=== PATIENT | female | born 1975 | race Caucasian/White ===

== ENCOUNTER → 2020-11-21 | Outpatient (CLI) | payer BC ==
--- NOTE | 2020-11-22 13:46 | MM ---
Reason for exam: screening (asymptomatic). Last mammogram was performed 6 years and 6 months ago. History: Family history of breast cancer in mother at age 42. Physical Findings: A clinical breast exam by your physician is recommended on an annual basis and results should be correlated with mammographic findings. MG 3D Screening Mammo W/Cad Bilateral CC and MLO view(s) were taken. Prior study comparison: May 19, 2014, bilateral MG diagnostic mammo w CAD DAVY. There are scattered fibroglandular densities. No significant changes when compared with prior studies. ASSESSMENT: Benign, BI-RAD 2 RECOMMENDATION: Routine screening mammogram of both breasts in 1 year.
== END | disposition home or self-care (01) ==
LOC: RADMAMWWP 16:26
PROVIDERS: ATTEND Family Medicine
DX: Z12.31 Encounter for screening mammogram for malignant neoplasm of breast (principal); Z80.3 Family history of malignant neoplasm of breast
CPT/HCPCS: 77063; 77067

== ENCOUNTER 2021-01-07 08:36 | Inpatient (IN) | payer BC ==
[2021-01-07] MEDS ORDERED: SODIUM CHLORIDE 0.9% 1,000 ML IV STA (08:53)
[2021-01-07] MEDS ORDERED: ONDANSETRON 4 MG/2 ML VIAL IVP STA (08:53)
[2021-01-07] MEDS ORDERED: MORPHINE SULFATE 4 MG/ML SYRINGE IV STA (08:53)
[2021-01-07 09:23] LABS: Basophils # (A) 0.1 k/uL (0-0.2); Basophils % (A) 0 %; Eosinophils # (A) 0.2 k/uL (0-0.7); Eosinophils % (A) 1 %; HCT 42.3 % (34.0-46.0); HGB 14.8 gm/dL (11.4-16.0); Lymphocytes # (A) 1.1 k/uL (1.0-4.8); Lymphocytes % (A) 7 %; MCHC 34.9 g/dL (31.0-37.0); MCV 91.7 fL (80.0-100.0); Mean Platelet Volume 6.8; Monocytes # (A) 0.6 k/uL (0-1.0); Monocytes % (A) 4 %; Neutrophils # (A) 14.2 k/uL (1.3-7.7); Neutrophils % (A) 87 %; Platelet Count 243 k/uL (150-450); RBC 4.62 m/uL (3.80-5.40); RDW 11.6 % (11.5-15.5); WBC 16.2 k/uL (3.8-10.6)
[2021-01-07 09:32] LABS: ALT 9 U/L (4-34); AST 16 U/L (14-36); African American GFR (CKD) >90 (>60 ml/min/1.73 sqM); Albumin 4.2 g/dL (3.5-5.0); Alkaline Phosphatase 65 U/L (38-126); Amylase 54 U/L (30-110); Anion Gap 8 mmol/L; Blood Urea Nitrogen 13 mg/dL (7-17); Calcium 10.1 mg/dL (8.4-10.2); Carbon Dioxide 28 mmol/L (22-30); Chloride 104 mmol/L (98-107); Glucose 109 mg/dL (74-99); Lipase 120 U/L (23-300); Non-African American GFR(CKD) >90 (>60 ml/min/1.73 sqM); Potassium 4.3 mmol/L (3.5-5.1); Sodium 140 mmol/L (137-145); Total Bilirubin 1.3 mg/dL (0.2-1.3); Total Protein 7.1 g/dL (6.3-8.2)
[2021-01-07 09:44] LABS: INR 0.8 (<1.2); Prothrombin Time 9.3 sec (9.0-12.0)
--- NOTE | 2021-01-07 09:49 | CT ---
EXAMINATION TYPE: CT abdomen pelvis w con DATE OF EXAM: 01/07/2021 COMPARISON: 05/15/2015 HISTORY: 45-year-old female RLQ pain, constipation TECHNIQUE: Contiguous axial scanning of the abdomen and pelvis following administration of 100 ml Iso lora 300 IV contrast. Delayed images through the kidneys and coronal/sagittal reconstructions perform ed. CT DLP: 907 mGycm Automated exposure control for dose reduction was used. FINDINGS: Heart normal size without pericardial effusion. Lung bases clear without pleural effusion. Liver borderline in size and 17.9 cm. No focal liver lesion. Bile duct mildly dilated at 7 mm, fountain l image 34, acceptable given postcholecystectomy status. Portal venous system is patent. 2.0 x 1.2 cm low-density nodule of the left adrenal gland. Mild diffuse thickening of the right adren al gland without discrete nodularity. Incidental tiny 5 mm cortical hypodensity posterior lower pole left kidney probable small cyst. Spleen enlarged at 14.3 cm measured on coronal series. Pancreas within normal limits. No dilated small bowel, free fluid, or free air. Normal appendix. There is extensive heterogeneous tissue, fluid, and fat stranding in the right adnexa likely centered over the enlarged right ovary with areas of vascular enhancement and small foci of extraluminal air. A 1.5 cm cystic structure is present here as well. Left-sided colonic diverticulosis, extensive in the sigmoid colon. There is moderate inflammatory wal l thickening of the distal sigmoid colon with moderate to severe fat stranding extending to the right adnexa. Bladder partially distended. Left-sided pelvic phlebolith. Uterus anteverted. Heterogeneous enhancement of the uterus may be physiologic or could also reflect u nderlying fibrotic change or adenomyosis. Left ovary is visualized with a probable 1.5 cm corpus lute um IMPRESSION: 1. EXAM POSITIVE FOR ACUTE DIVERTICULITIS CENTERED ALONG THE DISTAL SIGMOID COLON. EXTENSIVE SURROUND ING INFLAMMATION EXTENDS INTO THE RIGHT ADNEXA WHERE A COUPLE SMALL FOCI OF EXTRALUMINAL AIR ARE PRES ENT COMPATIBLE WITH A TINY LOCALIZED PERFORATION AND ADJACENT INFLAMMATION OF THE RIGHT OVARY. A 1.5 CM CYSTIC STRUCTURE HERE PROBABLY REPRESENTS AN OVARIAN CYST RATHER THAN EARLY SMALL ABSCESS. FOLLOW- UP RECOMMENDED IF NO IMPROVEMENT WITH CONSERVATIVE MANAGEMENT. 2. INCIDENTAL 2 CM BENIGN LIPID RICH LEFT ADRENAL ADENOMA. MILD SPLENOMEGALY AT 14.3 CM. 3. POSSIBLE UNDERLYING SMALL FIBROID CHANGES THROUGHOUT THE UTERUS OR ADENOMYOSIS.
[2021-01-07 10:03] LABS: Partial Thromboplastin Time 21.5 sec (22.0-30.0)
[2021-01-07] MEDS ORDERED: NALOXONE 0.4 MG/ML 1 ML VIAL IV PRN (10:24)
[2021-01-07] MEDS ORDERED: ONDANSETRON 4 MG/2 ML VIAL IVP PRN (10:24)
[2021-01-07] MEDS ORDERED: PIPERACILLIN-TAZOBACTAM 3.375 GM in SODIUM CHLORIDE 0.9% 100 ML IVPB STA (10:26)
--- NOTE | 2021-01-07 10:31 | ED ---
Abdominal Pain HPI - General Chief Complaint: Abdominal Pain Stated Complaint: Abd/Back Pain Time Seen by Provider: 01/07/21 08:48 Source: patient Mode of arrival: ambulatory Limitations: no limitations - History of Present Illness Initial Comments: Patient is a 45-year-old female presenting to the emergency Department with complaints of right lower quadrant abdominal pain for the last 4 days. Patient states she has not had a bowel movement since Thursday, 5 days ago. About 4 days ago started noticing pain in her lower abdominal region, over the past couple days it has migrated to more the right lower quadrant, she states is very tender to the touch. She is having lots of nausea, no vomiting. She tried a stool softener, was able to pass gas over the last couple days but today the pain increases he came in for evaluation. She does have history cholecystectomy, ureter abrasion. She has history of ovarian cyst. She denies any fevers or chills, no chest pain or shortness of breath, no dysuria. She has no further complaints at this time. - Related Data Home Medications Medication Instructions Recorded Confirmed ALPRAZolam [Xanax] 0.5 mg PO DAILY PRN 01/07/21 01/07/21 Magnesium Hydroxide [Milk of 2,400 mg PO ONCE PRN 01/07/21 01/07/21 Magnesia] SUMAtriptan succinate [Imitrex] 50 mg PO DAILY PRN 01/07/21 01/07/21 Allergies Allergy/AdvReac Type Severity Reaction Status Date / Time No Known Allergies Allergy Verified 01/07/21 10:06 Review of Systems ROS Statement: Those systems with pertinent positive or pertinent negative responses have been documented in the HPI. ROS Other: All systems not noted in ROS Statement are negative. Past Medical History Past Medical History: No Reported History History of Any Multi-Drug Resistant Organisms: None Reported Past Surgical History: Cholecystectomy, Uterine Ablation Past Psychological History: Anxiety Smoking Status: Current every day smoker Past Alcohol Use History: None Reported Past Drug Use History: None Reported General Exam - General Exam Comments Initial Comments: GENERAL: Patient is well-developed and well-nourished. Patient is nontoxic and in moderate distress. HEAD: Atraumatic, normocephalic. EYES: Pupils equal round and reactive to light, extraocular movements intact, sclera anicteric, conjunctiva are normal. Eyelids were unremarkable. ENT: TMs normal, nares patent, oropharynx clear without exudates. Moist mucous membranes. NECK: Normal range of motion, supple without lymphadenopathy or JVD. LUNGS: Unlabored respirations. Breath sounds clear to auscultation bilaterally and equal. No wheezes rales or rhonchi. HEART: Regular rate and rhythm without murmurs, rubs or gallops. ABDOMEN: Patient is extremely tender to the touch of the entire right lower quadrant to mid abdomen region, she has guarding a lot, hypoactive bowel sounds. No masses appreciated. : Deferred MUSCULOSKELETAL: Normal extremities with adequate strength and normal range of motion, no pitting or edema. No clubbing or cyanosis. NEUROLOGICAL: Patient is alert and oriented x 3. Motor and sensory are also intact. Cranial nerves II through XII grossly intact. Symmetrical smile. Normal speech, normal gait. PSYCH: Normal mood, normal affect. SKIN: Warm, Dry, normal turgor, no rashes or lesions noted. Limitations: no limitations Course Vital Signs 01/07/21 01/07/21 08:38 10:53 Temperature 97.9 F Pulse Rate 102 H 81 Respiratory 18 16 Rate Blood Pressure 135/76 123/71 O2 Sat by Pulse 99 99 Oximetry Medical Decision Making - Medical Decision Making Patient is a 45-year-old female here for right lower quadrant abdominal pain and constipation over the past 4 days, positive nausea no vomiting or diarrhea. Her vitals were stable upon arrival, no fevers. Patient's labs today show a white count of 16.2, lactic acid is normal, lipase is normal. CT of the abdomen shows positive acute diverticulitis along the distal sigmoid colon with extensive surrounding inflammation and extends towards the right adnexa where there is a small foci of extraluminal air compatible with a tiny perforation and adjacent inflammation of the right ovary. Patient was given some fluids, Zofran and pain medication which she initially refused but now has accepted. I discussed these findings with Dr. Ramon who agrees to consult, we will order an ultrasound of the pelvis for further exam of the right ovary, this is pending. Patient will be started on antibiotics. Patient accepted by Dr. Wu. Case discussed with Dr. Ware. - Lab Data Result diagrams: 01/07/21 09:03 01/07/21 09:03 Lab Results 01/07/21 01/07/21 01/07/21 Range/Units 09:03 09:03 09:03 WBC 16.2 H (3.8-10.6) k/uL RBC 4.62 (3.80-5.40) m/uL Hgb 14.8 (11.4-16.0) gm/dL Hct 42.3 (34.0-46.0) % MCV 91.7 (80.0-100.0) fL MCH 32.0 (25.0-35.0) pg MCHC 34.9 (31.0-37.0) g/dL RDW 11.6 (11.5-15.5) % Plt Count 243 (150-450) k/uL MPV 6.8 Neutrophils % 87 % Lymphocytes % 7 % Monocytes % 4 % Eosinophils % 1 % Basophils % 0 % Neutrophils # 14.2 H (1.3-7.7) k/uL Lymphocytes # 1.1 (1.0-4.8) k/uL Monocytes # 0.6 (0-1.0) k/uL Eosinophils # 0.2 (0-0.7) k/uL Basophils # 0.1 (0-0.2) k/uL PT 9.3 (9.0-12.0) sec INR 0.8 (<1.2) APTT 21.5 L (22.0-30.0) sec Sodium 140 (137-145) mmol/L Potassium 4.3 (3.5-5.1) mmol/L Chloride 104 (98-107) mmol/L Carbon Dioxide 28 (22-30) mmol/L Anion Gap 8 mmol/L BUN 13 (7-17) mg/dL Creatinine 0.73 (0.52-1.04) mg/dL Est GFR (CKD-EPI)AfAm >90 (>60 ml/min/1.73 sqM) Est GFR (CKD-EPI)NonAf >90 (>60 ml/min/1.73 sqM) Glucose 109 H (74-99) mg/dL Plasma Lactic Acid Robbin (0.7-2.0) mmol/L Calcium 10.1 (8.4-10.2) mg/dL Total Bilirubin 1.3 (0.2-1.3) mg/dL AST 16 (14-36) U/L ALT 9 (4-34) U/L Alkaline Phosphatase 65 (38-126) U/L Total Protein 7.1 (6.3-8.2) g/dL Albumin 4.2 (3.5-5.0) g/dL Amylase 54 (30-110) U/L Lipase 120 (23-300) U/L Urine HCG, Qual (Not Detectd) Coronavirus (PCR) (Not Detectd) 01/07/21 01/07/21 01/07/21 Range/Units 09:03 09:03 10:44 WBC (3.8-10.6) k/uL RBC (3.80-5.40) m/uL Hgb (11.4-16.0) gm/dL Hct (34.0-46.0) % MCV (80.0-100.0) fL MCH (25.0-35.0) pg MCHC (31.0-37.0) g/dL RDW (11.5-15.5) % Plt Count (150-450) k/uL MPV Neutrophils % % Lymphocytes % % Monocytes % % Eosinophils % % Basophils % % Neutrophils # (1.3-7.7) k/uL Lymphocytes # (1.0-4.8) k/uL Monocytes # (0-1.0) k/uL Eosinophils # (0-0.7) k/uL Basophils # (0-0.2) k/uL PT (9.0-12.0) sec INR (<1.2) APTT (22.0-30.0) sec Sodium (137-145) mmol/L Potassium (3.5-5.1) mmol/L Chloride (98-107) mmol/L Carbon Dioxide (22-30) mmol/L Anion Gap mmol/L BUN (7-17) mg/dL Creatinine (0.52-1.04) mg/dL Est GFR (CKD-EPI)AfAm (>60 ml/min/1.73 sqM) Est GFR (CKD-EPI)NonAf (>60 ml/min/1.73 sqM) Glucose (74-99) mg/dL Plasma Lactic Acid Robbin 0.6 L (0.7-2.0) mmol/L Calcium (8.4-10.2) mg/dL Total Bilirubin (0.2-1.3) mg/dL AST (14-36) U/L ALT (4-34) U/L Alkaline Phosphatase (38-126) U/L Total Protein (6.3-8.2) g/dL Albumin (3.5-5.0) g/dL Amylase (30-110) U/L Lipase (23-300) U/L Urine HCG, Qual Not Detected (Not Detectd) Coronavirus (PCR) Not Detected (Not Detectd) Disposition Clinical Impression: Abdominal pain, Diverticulitis of colon with perforation Disposition: ADMITTED IP TO THIS HOSP Condition: Stable Is patient prescribed a controlled substance at d/c from ED?: No Referrals: Livan Dyer III, MD [Primary Care Provider] - 1-2 days Decision Date: 01/07/21 Decision Time: 10:31
[2021-01-07] MEDS: MORPHINE SULFATE 4 MG/ML SYRINGE IV PRN ×2 (10:55→15:21)
[2021-01-07] MEDS: SODIUM CHLORIDE 0.9% 1,000 ML IV SCH ×3 (10:56→23:34)
--- NOTE | 2021-01-07 11:58 | US ---
EXAMINATION TYPE: US transvaginal DATE OF EXAM: 01/07/2021 COMPARISON: CT CLINICAL HISTORY: RLQ pain, ovarian cyst, possible abscess. Enlarged right ovary per CT; patient c/o RLQ pain x 5 days; constipation; . TECHNIQUE: Transvaginal (TV). Transvaginal sonographic images were medically necessary as patient stated just emptied bladder. Date of LMP: 3 weeks ago EXAM MEASUREMENTS: Uterus: 9.2 x 6.1 x 4.9 cm Endometrial Stripe: not distinguishable. There is solid oval mass within measuring 2.3 cm x 1.2 cm x 1.1 cm. Right Ovary: 7.4 x 3.7 x 5.0 cm Left Ovary: 2.3 x 2.2 x 2.9 cm 1. Uterus: anteflexed as fundus tips posterior; couple of Nabothian Cysts seen in cervix with larges t cyst = 0.7 x 0.7 x 0.5cm; 2. Endometrium: hyperechoic oval mass = 1.7 x 2.3 x 1.2cm in myometrial/endometrial borders. Thus en dometrium is not discerned. 3. Right Ovary: Grossly 7.4 cm enlarged, complex ovary with exophytic cyst = 1.6 x 1.3 x 1.2cm 4. Left Ovary: small follicles seen Spectral, color and waveform doppler imaging shows good arterial and venous flow within the ovaries ; there is no evidence for ovarian torsion. 5. Bilateral Adnexa: wnl 6. Posterior cul-de-sac: wnl IMPRESSION: 1. There is an endometrial/myometrial mass measuring 2.3 cm. The endometrial stripe is not distinguis hable. Gynecologic evaluation is recommended. In addition, an MRI pelvis could be obtained with IV co ntrast. 2. Grossly enlarged right ovary measuring 7.4 cm. Underlying mass is not excluded. Gynecologic evalua tion is recommended. Again MRI of the pelvis may be helpful.
[2021-01-07] MEDS: KETOROLAC 15 MG/ML 1 ML VIAL IVP PRN ×2 (13:55→23:37)
--- NOTE | 2021-01-07 14:36 | P.GSCN ---
History of Present Illness Consult date: 01/07/21 History of present illness: CHIEF COMPLAINT: Pelvic pain HISTORY OF PRESENT ILLNESS: This is a 45-year-old female with a known past medical history of nicotine dependence, migraines and anxiety. She has a surgical history of cholecystectomy and uterine ablation. She presents to the hospital with complaints of lower pelvic pain that radiates to the back on the right side. She reports symptoms started over the weekend about 3 days ago. She has been nauseated. She denies any vomiting or fevers. Denies any change in bowel habits. She denies any vaginal discharge. She denies any irregular vaginal bleeding. She had a computed tomography scan of the abdomen and pelvis with contrast showing acute diverticulitis centered along the distal sigmoid colon. Extensive surrounding inflammation extends into the right adnexa where couple small foci of extraluminal air are present compatible with a tiny localized perforation and adjacent inflammation of the right ovary. A 1.5 cm cystic structure probably presented ovarian cyst rather than an early small abscess. Patient had transvaginal ultrasound completed showing an endometrial/myometrial mass measuring 2.3 cm. The endometrial stripe is not distinguishable. Gynecological evaluation recommended. Grossly enlarged right ovary measuring 7.4 cm underlying mass is not excluded. Patient denies any family history of ovarian cancer. PAST MEDICAL HISTORY: See list. PAST SURGICAL HISTORY: See list. MEDICATIONS: See list. ALLERGIES: See list. SOCIAL HISTORY: No illicit drug use. REVIEW OF SYSTEMS: CONSTITUTIONAL: Denies fever or chills. HEENT: Denies blurred vision, vision changes, or eye pain. Denies hemoptysis ENDOCRINE: Denies heat or cold intolerance. CARDIOVASCULAR: Denies chest pain or pressure. RESPIRATORY: No shortness of breath. GASTROINTESTINAL: Please refer to HPI NEURO: Denies history of seizures. PSYCH: No depression or suicidal ideation HEMATOLOGIC: Denies bleeding disorders. LYMPHATIC: The patient denies any lumps and bumps around the neck. GENITOURINARY: Denies any blood in urine or increased urinary frequency. MUSCULOSKELETAL: Denies myalgias. Denies joint swelling. Denies decreased range of motion beyond patients baseline. SKIN: Denies pruitis. Denies rash. PHYSICAL EXAM: VITAL SIGNS: Reviewed GENERAL: Well-developed in no acute distress. HEENT: No sclera icterus. Extraocular movements grossly intact. Moist buccal mucosa. Head is atraumatic, normocephalic. Hears conversational speech. No nasal drainage. NECK: Supple without lymphadenopathy. CHEST: Non-labored respirations and equal bilateral excursions. CARDIOVASCULAR: Regular rate with regular rhythm. Palpable 2+ radial pulses. ABDOMEN: Soft. Nondistended. Tenderness with palpation of the pelvic suprapubic area and right side of the abdomen MUSCULOSKELETAL: No clubbing or cyanosis. NEUROLOGIC: No focal or lateralizing signs. Cranial nerves II through XII grossly intact. PSYCH: Appropriate affect. Alert and oriented to person, place and time. SKIN: Well perfused. Good skin turgor. LABORATORY DATA: IMAGING: computed tomography scan of the abdomen and pelvis with contrast showing acute diverticulitis centered along the distal sigmoid colon. Extensive surrounding inflammation extends into the right adnexa where couple small foci of extraluminal air are present compatible with a tiny localized perforation and adjacent inflammation of the right ovary. A 1.5 cm cystic structure probably presented ovarian cyst rather than an early small abscess. Transvaginal ultrasound completed showing an endometrial/myometrial mass measuring 2.3 cm. The endometrial stripe is not distinguishable. Gynecological evaluation recommended. Grossly enlarged right ovary measuring 7.4 cm underlying mass is not excluded. ASSESSMENT: 1. Acute diverticulitis of the distal sigmoid colon 2. Enlarged right ovary measuring 7.4 cm, underlying mass not excluded on transvaginal ultrasound. Computed tomography scan noted enlarged right ovary with areas of vascular enhancement and small foci of extraluminal air 3. Endometrial/myometrial mass measuring 2.3 cm on transvaginal ultrasound 4. History of cholecystectomy 5. History of uterine ablation 6. Nicotine dependence PLAN: -Recommend gynecological consult for the enlarged right ovary and endometrial mass -Continue antibiotics for her acute diverticulitis -Keep patient nothing by mouth except for ice chips and popsicles -Increase IV fluids to 125 mL an hour -Continue pain medication as needed Thank you for this consultation Physician Advertising Production Manager note has been reviewed by physician. Signing provider agrees with the documented findings, assessment, and plan of care. Past Medical History Past Medical History: No Reported History History of Any Multi-Drug Resistant Organisms: None Reported Past Surgical History: Cholecystectomy, Uterine Ablation Past Psychological History: Anxiety Smoking Status: Current every day smoker Past Alcohol Use History: None Reported Past Drug Use History: None Reported - Past Family History Mother Family Medical History: Cancer Additional Family Medical History / Comment(s): Breast cancer Father Family Medical History: Diabetes Mellitus, Hyperlipidemia, Hypertension Additional Family Medical History / Comment(s): AAA Medications and Allergies Home Medications Medication Instructions Recorded Confirmed Type ALPRAZolam [Xanax] 0.5 mg PO DAILY PRN 01/07/21 01/07/21 History Magnesium Hydroxide [Milk of 2,400 mg PO ONCE PRN 01/07/21 01/07/21 History Magnesia] SUMAtriptan succinate [Imitrex] 50 mg PO DAILY PRN 01/07/21 01/07/21 History Allergies Allergy/AdvReac Type Severity Reaction Status Date / Time No Known Allergies Allergy Verified 01/07/21 10:06 Surgical - Exam Vital Signs Temp Pulse Resp BP Pulse Ox 97.9 F 102 H 18 135/76 99 01/07/21 08:38 01/07/21 08:38 01/07/21 08:38 01/07/21 08:38 01/07/21 08:38 Results - Labs 01/07/21 09:03 01/07/21 09:03 Abnormal Lab Results - Last 24 Hours (Table) 01/07/21 01/07/21 01/07/21 Range/Units 09:03 09:03 09:03 WBC 16.2 H (3.8-10.6) k/uL Neutrophils # 14.2 H (1.3-7.7) k/uL APTT 21.5 L (22.0-30.0) sec Glucose 109 H (74-99) mg/dL Plasma Lactic Acid Robbin (0.7-2.0) mmol/L 01/07/21 Range/Units 09:03 WBC (3.8-10.6) k/uL Neutrophils # (1.3-7.7) k/uL APTT (22.0-30.0) sec Glucose (74-99) mg/dL Plasma Lactic Acid Robbin 0.6 L (0.7-2.0) mmol/L Diabetes panel 01/07/21 Range/Units 09:03 Sodium 140 (137-145) mmol/L Potassium 4.3 (3.5-5.1) mmol/L Chloride 104 (98-107) mmol/L Carbon Dioxide 28 (22-30) mmol/L BUN 13 (7-17) mg/dL Creatinine 0.73 (0.52-1.04) mg/dL Glucose 109 H (74-99) mg/dL Calcium 10.1 (8.4-10.2) mg/dL AST 16 (14-36) U/L ALT 9 (4-34) U/L Alkaline Phosphatase 65 (38-126) U/L Total Protein 7.1 (6.3-8.2) g/dL Albumin 4.2 (3.5-5.0) g/dL Calcium panel 01/07/21 Range/Units 09:03 Calcium 10.1 (8.4-10.2) mg/dL Albumin 4.2 (3.5-5.0) g/dL Pituitary panel 01/07/21 Range/Units 09:03 Sodium 140 (137-145) mmol/L Potassium 4.3 (3.5-5.1) mmol/L Chloride 104 (98-107) mmol/L Carbon Dioxide 28 (22-30) mmol/L BUN 13 (7-17) mg/dL Creatinine 0.73 (0.52-1.04) mg/dL Glucose 109 H (74-99) mg/dL Calcium 10.1 (8.4-10.2) mg/dL Adrenal panel 01/07/21 Range/Units 09:03 Sodium 140 (137-145) mmol/L Potassium 4.3 (3.5-5.1) mmol/L Chloride 104 (98-107) mmol/L Carbon Dioxide 28 (22-30) mmol/L BUN 13 (7-17) mg/dL Creatinine 0.73 (0.52-1.04) mg/dL Glucose 109 H (74-99) mg/dL Calcium 10.1 (8.4-10.2) mg/dL Total Bilirubin 1.3 (0.2-1.3) mg/dL AST 16 (14-36) U/L ALT 9 (4-34) U/L Alkaline Phosphatase 65 (38-126) U/L Total Protein 7.1 (6.3-8.2) g/dL Albumin 4.2 (3.5-5.0) g/dL
[2021-01-07] MEDS ORDERED: MAGNESIUM HYDROXIDE 2,400 MG/10 ML CUP PO PRN (15:03)
[2021-01-07] MEDS ORDERED: ALPRAZolam 0.5 MG TAB PO PRN (15:03)
[2021-01-07] MEDS ORDERED: SUMAtriptan succinate 50 MG TAB PO PRN (15:03)
[2021-01-07] MEDS: PIPERACILLIN-TAZOBACTAM 3.375 GM in SODIUM CHLORIDE 0.9% 100 ML IVPB SCH ×2 (16:40→23:34)
[2021-01-07] MEDS: HEPARIN SODIUM,PORCINE/PF 5,000 UNIT/0.5 ML SYRINGE SQ SCH ×2 (16:40→23:34)
--- NOTE | 2021-01-08 00:13 | P.HPIM ---
History of Present Illness H&P Date: 01/07/21 Chief Complaint: Abdominal pain. Patient is a 45-year-old female with a known history of anxiety, currently everyday smoker and history of uterine ablation presents to ER with the complaints of abdominal pain mainly right lower quadrant since last /4 days. Patient thought that his abdominal pain will improve over the weekend but for the past 2 days pain is getting worse and tender to touch. Associate with nausea and vomiting. denied any bowel movement for the past 4 to 5 days. Otherwise patient is able to pass flatus. No recent diarrhea. No recent illnesses. Denied any recent antibiotic use. Patient has been afebrile. No cough or sputum production. No chest pain or shortness of breath. Denied any dysuria or hematuria. CT of the abdomen pelvis in the ER showed positive for acute diverticulitis centered around the distal sigmoid colon. Extensive surrounding inflammation into the right adnexa where a couple small foci of extraluminal air present compatible with a tiny localized perforation and adjacent inflammation of the right ovary. 1.5 cm cystic structure probably representing duration of ovarian cyst rather than at least small abscess. Incidental 2 cm benign lipid rich left adrenal adenoma. Possible underlying small fibroid changes throughout the uterus or adenomyosis. Laboratory data showed WBC 16.2, hemoglobin 14.8 and platelets 243 BUN 39 creatinine 0.73, sodium 140 potassium 4.3 chloride 104 and lactic acid 0.6 AST 16 ALT 9 alk phos 65 total protein 7.1 amylase 54 and lipase 120 and coronavirus PCR not detected and urine hCG not detected. Review of Systems Constitutional: Patient denies any fever or chills . No generalized weakness or weight loss. Abdomen: Patient does complain of Abdominal pain and nausea. No diarrhea. Patient does have constipation.. Cardiovascular: Patient denies any chest pain or short of breath no palpitations. Respiratory: patient denied any cough or sputum production. No shortness of breath Neurologic: Patient denied any numbness or tingling headache. Musculoskeletal: Patient denies any complaints of joint swelling or deformity. Skin: Negative Psychiatric: Negative Endocrine: No heat or cold intolerance. No recent weight gain. Genitourinary: No dysuria or hematuria. All other 14 point ROS negative except the above Past Medical History Past Medical History: No Reported History History of Any Multi-Drug Resistant Organisms: None Reported Past Surgical History: Cholecystectomy, Uterine Ablation Past Psychological History: Anxiety Smoking Status: Current every day smoker Past Alcohol Use History: None Reported Past Drug Use History: None Reported - Past Family History Mother Family Medical History: Cancer Additional Family Medical History / Comment(s): Breast cancer Father Family Medical History: Diabetes Mellitus, Hyperlipidemia, Hypertension Additional Family Medical History / Comment(s): AAA Medications and Allergies Home Medications Medication Instructions Recorded Confirmed Type ALPRAZolam [Xanax] 0.5 mg PO DAILY PRN 01/07/21 01/07/21 History Magnesium Hydroxide [Milk of 2,400 mg PO ONCE PRN 01/07/21 01/07/21 History Magnesia] SUMAtriptan succinate [Imitrex] 50 mg PO DAILY PRN 01/07/21 01/07/21 History Allergies Allergy/AdvReac Type Severity Reaction Status Date / Time No Known Allergies Allergy Verified 01/07/21 10:06 Physical Exam Vitals: Vital Signs Temp Pulse Pulse Resp BP BP Pulse Ox 01/07/21 12:54 98.9 F 79 17 113/72 98 01/07/21 10:53 81 16 123/71 99 01/07/21 08:38 97.9 F 102 H 18 135/76 99 Intake and Output 01/07/21 01/07/21 01/07/21 06:59 14:59 22:59 Other: Weight 72.5 kg PHYSICAL EXAMINATION: Patient is lying in the bed comfortably, no acute distress, awake alert and oriented.. HEENT: Normocephalic. Neck is supple. Pupils reactive. Nostrils clear. Oral cavity is moist. Ears reveal no drainage. Neck reveals no JVD, carotid bruits, or thyromegaly. CHEST EXAMINATION: Trachea is central. Symmetrical expansion. Lung brennan clear to auscultation and percussion. CARDIAC: Normal S1, S2 with no gallops. No murmurs ABDOMEN: Soft. Right lower quadrant and lower abdominal tenderness. Bowel sounds normal. No organomegaly. No abdominal bruits. Extremities: reveal no edema. No clubbing or cyanosis Neurologically awake, alert, oriented x3 with well-coordinated movements. No focal deficits noted Skin: No rash or skin lesions. Psychiatric: Coperative. Nonsuicidal Musculoskeletal: No joint swelling or deformity. Normal range of motion. Results CBC & Chem 7: 01/07/21 09:03 01/07/21 09:03 Labs: Abnormal Lab Results - Last 24 Hours (Table) 01/07/21 01/07/21 01/07/21 Range/Units 09:03 09:03 09:03 WBC 16.2 H (3.8-10.6) k/uL Neutrophils # 14.2 H (1.3-7.7) k/uL APTT 21.5 L (22.0-30.0) sec Glucose 109 H (74-99) mg/dL Plasma Lactic Acid Robbin (0.7-2.0) mmol/L 01/07/21 Range/Units 09:03 WBC (3.8-10.6) k/uL Neutrophils # (1.3-7.7) k/uL APTT (22.0-30.0) sec Glucose (74-99) mg/dL Plasma Lactic Acid Robbin 0.6 L (0.7-2.0) mmol/L Thrombosis Risk Factor Assmnt - DVT/VTE Prophylaxis DVT/VTE Prophylaxis: Pharmacologic Prophylaxis ordered - Choose All That Apply Any of the Below Risk Factors Present?: Yes Each Factor Represents 1 point: Age 41-60 years, Obesity (BMI >25) Other Risk Factors: No Other congenital or acquired thrombophilia - If yes, enter type in comment: No Thrombosis Risk Factor Assessment Total Risk Factor Score: 2 Thrombosis Risk Factor Assessment Level: Low Risk Assessment and Plan Assessment: Acute diverticulitis of the distal sigmoid colon with a tiny perforation. Leukocytosis Right ovary 7.4 cm enlarged complex ovary with exophytic cyst. Endometrial mass transvaginal ultrasound. Ongoing nicotine addiction Anxiety Previous history of cholecystectomy and uterine ablation. DVT prophylaxis with heparin subcu Plan: Patient will be continued on IV hydration and antibiotics in the form of Zosyn. Follow-up culture reports. Patient is currently nothing by mouth. Continue with IV pain management and follow-up closely. WEAVER APPRENTICE consulted due to right ovarian and endometrial mass. General surgery is on board. Follow-up CBC and BMP tomorrow. Discussed with the patient and her family member at bedside in detail. Time with Patient: Greater than 30
[2021-01-08 05:24] LABS: Basophils % (A) 0 %; Eosinophils # (A) 0.2 k/uL (0-0.7); Eosinophils % (A) 2 %; Lymphocytes # (A) 1.7 k/uL (1.0-4.8); Lymphocytes % (A) 19 %; MCH 31.8 pg (25.0-35.0); MCHC 34.4 g/dL (31.0-37.0); MCV 92.5 fL (80.0-100.0); Mean Platelet Volume 6.7; Monocytes # (A) 0.4 k/uL (0-1.0); Monocytes % (A) 5 %; Neutrophils # (A) 6.5 k/uL (1.3-7.7); Neutrophils % (A) 73 %; Platelet Count 181 k/uL (150-450); RBC 3.78 m/uL (3.80-5.40); RDW 11.6 % (11.5-15.5); WBC 8.9 k/uL (3.8-10.6)
[2021-01-08] MEDS: KETOROLAC 15 MG/ML 1 ML VIAL IVP PRN ×3 (07:03→21:01)
[2021-01-08] MEDS: PIPERACILLIN-TAZOBACTAM 3.375 GM in SODIUM CHLORIDE 0.9% 100 ML IVPB SCH ×3 (09:08→23:17)
[2021-01-08] MEDS: HEPARIN SODIUM,PORCINE/PF 5,000 UNIT/0.5 ML SYRINGE SQ SCH ×3 (09:08→23:31)
[2021-01-08] MEDS: SODIUM CHLORIDE 0.9% 1,000 ML IV SCH (09:15)
--- NOTE | 2021-01-08 10:11 | P.CON ---
Consult Note - . Consult date: 01/08/21 Assessment/Plan:: This is a 45-year-old white female 3 para 3 LMP 12/20/2020. Patient presented to the hospital yesterday with increasing abdominal distention and pain over the past 5 days. In addition she had not had a bowel movement and approximate 5-6 days. Computed tomography scan reveals acute diverticulitis, and antibiotics have been started. Initial white count on admission 16.2, down to 8.9 this morning. On computed tomography scan there is suggestion of a complex right adnexal mass. This is confirmed on pelvic ultrasound, 7.4 x 3.7 x 5.0 cm. The uterus itself has a 2.3 x 1.2 x 1.2 cm solid mass, likely fibroid. Past medical history is negative. Current medications none. ALLERGIES none known. Social history tobacco 1 pack per day for many years, patient is , she denies alcohol or drug use. Family history patient's mother at age 44 of breast cancer. There is no history in the family of ovarian, uterine, colon, or cervical cancer. Past surgical history is significant for cholecystectomy 2000, uterine ablation 18 years ago. On exam patient is 5 foot 2 inches, 154 pounds, vital signs are stable and she is afebrile. HEENT exam is negative. Chest is clear in all brennan anteriorly and posteriorly. Breast exam reveals normal breasts bilaterally, no tenderness, nipple discharge axillary adenopathy or skin changes. Abdomen is softly distended, hypoactive bowel sounds. She is tender throughout the lower abdomen, 2 out of 10 in the left lower quadrant. 4-10 suprapubically, 10 out of 10 in the right lower quadrant. There is rebound and guarding. Pelvic exam reveals multiparous cervix, no unusual discharge. Uterus is small mobile, nontender. Left adnexa is negative. The right adnexal region is softly distended with the impression of a mass, difficult to ascertain secondary to patient's discomfort. Initial white count 16.2, down to 8.9. Hemoglobin 12.0, hematocrit 35.0, platelets 243,000. Ultrasound revealing 9.2 x 6.1 x 4.9 centimeter uterus with a 2.3 x 1.2 x 1.2 cm solid mass, likely fibroid. Left adnexa 2.3 x 2.2 x 2.9 cm, right adnexa 7.4 x 3.7 x 5.0 cm. Computed tomography scan reveals stranding, wall thickening of the sigmoid colon colon, fat shadowing consistent with acute diverticulitis throughout the lower abdomen. Impression: Acute diverticulitis, responding to Zosyn. Sonographic findings of a complex right adnexal mass, significance uncertain secondary to widespread abdominal and pelvic inflammation. Plan I have ordered an ova 1 study which is a send out lab to ascertain risk of ovarian cancer. I have discussed with the patient that I will follow-up with her in the office in 2-3 weeks, at which time we will re-image the pelvis, evaluate blood tests, and plan further treatment as appropriate. The case has been discussed with PA following this patient. Thank you for the consultation.
[2021-01-08 14:12] LABS: African American GFR (CKD) 119.6 (60.0-200.0); Anion Gap 3.9 mmol/L (4.00-12.00); BUN/Creat Ratio 14.29 Ratio (12.00-20.00); Calcium 8.7 mg/dL (8.7-10.3); Carbon Dioxide 27.1 mmol/L (21.6-31.8); Non-African American GFR(CKD) 103.2 (60.0-200.0); Potassium 4.5 mmol/L (3.5-5.5)
--- NOTE | 2021-01-08 15:48 | P.DS ---
Providers Date of admission: 01/07/21 10:41 Attending physician: Hema Peace Consults: 01/07/21 10:25 Consult Physician Urgent Consulting Provider: Shania Hernandez Consult Reason/Comments: Acute diverticulitis with perforation Do you want consulting provider notified?: Already Contacted 01/07/21 13:29 Consult Physician Routine Consulting Provider: Shania Polo Consult Reason/Comments: Endometrial mass and enlarged right ovary Do you want consulting provider notified?: Yes Primary care physician: [facility] Course: 45-year-old female came in with abdominal pain at that time patient was constipated apparently was across patient resolved her abdominal pain continued as per the patient. Patient had abdominal CT scan which was within normal limits and patient the also had a pelvic ultrasound which showed fibroid. Fibroid is probably not contributing to the abdominal pain patient was evaluated by general surgery who doesn't believe that patient has a diverticulitis. Patient was on Zosyn. Patient had leukocytosis, I do not have any urine analysis available but patient was believed to have urinary tract infection was treated for that and completed antibiotic course for you urinary tract infection urine cultures also were negative. Patient was also evaluated by DIG[facility] MEDIA REPRESENTATIVE services. My impression is patient may have had mild colitis may be infectious or noninfectious from constipation which was not evident on the computed tomography scan of the abdomen. Patient received 3 days of antibiotics had abdominal pain completely resolved and I do not believe patient will need to further continue her antibiotics and the patient will be discharged today. PHYSICAL EXAMINATION: GENERAL: The patient is alert and oriented x3, not in any acute distress. Well developed, well nourished. HEENT: Pupils are round and equally reacting to light. EOMI. No scleral icterus. No conjunctival pallor. Normocephalic, atraumatic. No pharyngeal erythema. No thyromegaly. CARDIOVASCULAR: S1 and S2 present. No murmurs, rubs, or gallops. PULMONARY: Chest is clear to auscultation, no wheezing or crackles. ABDOMEN: Soft, nontender, nondistended, normoactive bowel sounds. No palpable organomegaly. MUSCULOSKELETAL: No joint swelling or deformity. EXTREMITIES: No cyanosis, clubbing, or pedal edema. NEUROLOGICAL: Gross neurological examination did not reveal any focal deficits. SKIN: No rashes. -Abdominal pain secondary to mild colitis and constipation resolved at this time will not require any antibiotics -No evidence of urinary tract infection -Uterine fibroids probably not contributing to her abdominal pain. -Leukocytosis reactive secondary to abdominal pain. No other evidence of infection at this time patient will not be discharged any acute other antibiotics. For rest of the other medical problems and has physician course please refer to progress note are H&P from Dr. Peace. Patient Condition at Discharge: Stable Plan - Discharge Summary Discharge Rx Participant: No New Discharge Prescriptions: No Action Magnesium Hydroxide [Milk of Magnesia] 2,400 mg PO ONCE PRN PRN Reason: Constipation SUMAtriptan succinate [Imitrex] 50 mg PO DAILY PRN PRN Reason: Migraine Headache ALPRAZolam [Xanax] 0.5 mg PO DAILY PRN PRN Reason: Anxiety Discharge Medication List ALPRAZolam [Xanax] 0.5 mg PO DAILY PRN 01/07/21 [History] Magnesium Hydroxide [Milk of Magnesia] 2,400 mg PO ONCE PRN 01/07/21 [History] SUMAtriptan succinate [Imitrex] 50 mg PO DAILY PRN 01/07/21 [History] Follow up Appointment(s)/Referral(s): Livan Dyer III, MD [Primary Care Provider] - 1-2 days
--- NOTE | 2021-01-08 15:52 | P.PN ---
Subjective Progress Note Date: 01/08/21 CHIEF COMPLAINT: Abdominal pain HISTORY OF PRESENT ILLNESS: Surgical service is following regards to patient's diverticulitis with small perforation. Patient reports that her left-sided abdominal pain has shown improvement. She is still complaining of right-sided abdominal pain. She denies any nausea or vomiting. She reports been at least 3 days since her last bowel movement. She is tolerating clear liquid diet. She's afebrile. White count has normalized to 8.9. Patient has been seen by SMOKING PIPE DRILLER AND THREADER tony cavazos regarding the right ovary mass. They are recommending further workup outpatient in 2-3 weeks. PHYSICAL EXAM: VITAL SIGNS: Reviewed GENERAL: Well-developed in no acute distress. HEENT: No sclera icterus. Extraocular movements grossly intact. Moist buccal mucosa. Head is atraumatic, normocephalic. Hears conversational speech. No nasal drainage. NECK: Supple without lymphadenopathy. CHEST: Non-labored respirations and equal bilateral excursions. CARDIOVASCULAR: Palpable 2+ radial pulses. ABDOMEN: Soft. Nondistended. Tenderness on the right lower quadrant. Minimal tenderness with palpation in the left lower quadrant MUSCULOSKELETAL: No clubbing or cyanosis. NEUROLOGIC: No focal or lateralizing signs. Cranial nerves II through XII grossly intact. PSYCH: Appropriate affect. Alert and oriented to person, place and time. SKIN: Well perfused. Good skin turgor. ASSESSMENT: 1. Acute diverticulitis of the distal sigmoid colon with small perforation 2. Enlarged right ovary measuring 7.4 cm, underlying mass not excluded on transvaginal ultrasound. 3. Endometrial/myometrial mass measuring 2.3 cm on transvaginal ultrasound 4. History of cholecystectomy 5. History of uterine ablation 6. Nicotine dependence PLAN: -Continue IV antibiotics -Advance diet to full liquids -Add Colace for constipation -Continue pain medication as needed -Encourage patient to ambulate Physician Overlock Operator note has been reviewed by physician. Signing provider agrees with the documented findings, assessment, and plan of care. Objective - Vital Signs Vital signs: Vital Signs Temp 98.2 F 01/08/21 14:11 Pulse 75 01/08/21 14:11 Resp 16 01/08/21 14:11 BP 146/80 01/08/21 14:11 Pulse Ox 98 01/08/21 14:11 Intake & Output 01/07/21 01/08/21 01/08/21 18:59 06:59 18:59 Intake Total 375 1630 Balance 375 1630 Weight 72.5 kg Intake: Intake, IV Titration 375 1600 Amount Piperacillin-Tazobactam 3 100 .375 gm In Sodium Chloride 0.9% 100 ml @ 25 mls/hr IVPB Q8HR [facility] Rx# :[id number] Sodium Chloride 0.9% 1, 375 1500 000 ml @ 125 mls/hr IV . Q8H [facility] Rx#:[id number] Oral 30 Other: Voiding Method Toilet # Voids 1 - Labs CBC & Chem 7: 01/08/21 04:38 01/08/21 04:38 Labs: Abnormal Lab Results - Last 24 Hours (Table) 01/08/21 01/08/21 Range/Units 04:38 04:38 RBC 3.78 L (3.80-5.40) m/uL Chloride 111 H (96-109) mmol/L Anion Gap 3.90 L (4.00-12.00) mmol/L Microbiology - Last 24 Hours (Table) 01/07/21 10:44 Blood Culture - Preliminary Blood No Growth after 24 hours
[2021-01-08] MEDS ORDERED: ACETAMINOPHEN TAB 325 MG TAB PO PRN (20:52)
[2021-01-08] MEDS: DOCUSATE 100 MG CAP PO SCH (21:01)
[2021-01-09] MEDS: KETOROLAC 15 MG/ML 1 ML VIAL IVP PRN ×2 (03:00→09:57)
[2021-01-09] MEDS: SODIUM CHLORIDE 0.9% 1,000 ML IV SCH (03:00)
[2021-01-09 06:32] VITALS: RESP 16
[2021-01-09] MEDS: PIPERACILLIN-TAZOBACTAM 3.375 GM in SODIUM CHLORIDE 0.9% 100 ML IVPB SCH (08:38)
[2021-01-09] MEDS: HEPARIN SODIUM,PORCINE/PF 5,000 UNIT/0.5 ML SYRINGE SQ SCH (08:38)
[2021-01-09] MEDS: DOCUSATE 100 MG CAP PO SCH (08:38)
[2021-01-09 08:53] VITALS: BP 121/74; PULSE 78; TEMP 97.7
[2021-01-09] MEDS ORDERED: FLUCONAZOLE 100 MG TAB PO ONE (10:45)
--- NOTE | 2021-01-09 10:51 | P.PN ---
Subjective Progress Note Date: 01/09/21 CHIEF COMPLAINT: Abdominal pain HISTORY OF PRESENT ILLNESS: Surgical service is following regards to patient's diverticulitis with small perforation. Patient is feeling better this morning. She reports improvement in her abdominal pain. Her pain is controlled. She is tolerating diet. She denies a nausea vomiting. Afebrile. WBC 8.9 PHYSICAL EXAM: VITAL SIGNS: Reviewed GENERAL: Well-developed in no acute distress. HEENT: No sclera icterus. Extraocular movements grossly intact. Moist buccal mucosa. Head is atraumatic, normocephalic. Hears conversational speech. No nasal drainage. NECK: Supple without lymphadenopathy. CHEST: Non-labored respirations and equal bilateral excursions. CARDIOVASCULAR: Palpable 2+ radial pulses. ABDOMEN: Soft. Nondistended. Tenderness on the right lower quadrant. Minimal tenderness with palpation in the left lower quadrant MUSCULOSKELETAL: No clubbing or cyanosis. NEUROLOGIC: No focal or lateralizing signs. Cranial nerves II through XII grossly intact. PSYCH: Appropriate affect. Alert and oriented to person, place and time. SKIN: Well perfused. Good skin turgor. ASSESSMENT: 1. Acute diverticulitis of the distal sigmoid colon with small perforation 2. Enlarged right ovary measuring 7.4 cm, underlying mass not excluded on transvaginal ultrasound. 3. Endometrial/myometrial mass measuring 2.3 cm on transvaginal ultrasound 4. History of cholecystectomy 5. History of uterine ablation 6. Nicotine dependence PLAN: -Patient is stable from surgical standpoint for discharge -Recommend antibiotics at discharge -Educated patient on a diverticular diet. Recommended no seeds or nuts and low fiber diet Physician Welder Shielded Metal Arc note has been reviewed by physician. Signing provider agrees with the documented findings, assessment, and plan of care. Objective - Vital Signs Vital signs: Vital Signs Temp 97.7 F 01/09/21 08:52 Pulse 78 01/09/21 08:52 Resp 16 01/09/21 08:52 BP 121/74 01/09/21 08:52 Pulse Ox 99 01/09/21 08:52 Intake & Output 01/08/21 01/09/21 01/09/21 18:59 06:59 18:59 Intake Total 400 120 Balance 400 120 Intake: Oral 400 120 Other: Voiding Method Toilet Toilet # Voids 2 4 1 - Labs CBC & Chem 7: 01/08/21 04:38 06/29/21 04:38 Labs: Abnormal Lab Results - Last 24 Hours (Table) 01/08/21 Range/Units 04:38 Chloride 111 H (96-109) mmol/L Anion Gap 3.90 L (4.00-12.00) mmol/L Microbiology - Last 24 Hours (Table) 01/07/21 10:44 Blood Culture - Preliminary Blood No Growth after 24 hours
--- NOTE | 2021-01-10 09:12 | P.DS ---
Providers Date of admission: 01/07/21 10:41 Expected date of discharge: 01/09/21 Attending physician: Hema Peace Consults: 01/07/21 10:25 Consult Physician Urgent Consulting Provider: Shania Hernandez Consult Reason/Comments: Acute diverticulitis with perforation Do you want consulting provider notified?: Already Contacted 01/07/21 13:29 Consult Physician Routine Consulting Provider: Shania Polo Consult Reason/Comments: Endometrial mass and enlarged right ovary Do you want consulting provider notified?: Yes Primary care physician: Livan Dyer Hospital Course: Final diagnosis Acute diverticulitis of the distal sigmoid colon with a tiny perforation. Leukocytosis Right ovary 7.4 cm enlarged complex ovary with exophytic cyst. Endometrial mass transvaginal ultrasound. Ongoing nicotine addiction Anxiety Previous history of cholecystectomy and uterine ablation. DVT prophylaxis Discharge disposition Patient is being discharged in a stable condition with guarded prognosis to home. Patient will follow-up with Dr. Dyer in the outpatient setting upon discharge. Patient is to follow-up with surgery Dr. Sands along with gynecology Dr. Polo discussed. Patient will continue on oral antibiotics in the form of Levaquin 500 mg along with Flagyl 500 mg 3 times a day for one week to complete the course. Patient instructed to follow strict diet guidelines. Total time taken is greater than 35 minutes. Hospital course Patient is a 45-year-old female with a known history of anxiety, currently everyday smoker and history of uterine ablation presents to ER with the complaints of abdominal pain mainly right lower quadrant since last /4 days. Patient thought that his abdominal pain will improve over the weekend but for the past 2 days pain is getting worse and tender to touch. Associate with nausea and vomiting. denied any bowel movement for the past 4 to 5 days. Otherwise patient is able to pass flatus. No recent diarrhea. No recent illnesses. Denied any recent antibiotic use. Patient has been afebrile. No cough or sputum production. No chest pain or shortness of breath. Denied any dysuria or hematuria. CT of the abdomen pelvis in the ER showed positive for acute diverticulitis centered around the distal sigmoid colon. Extensive surrounding inflammation into the right adnexa where a couple small foci of extraluminal air present compatible with a tiny localized perforation and adjacent inflammation of the right ovary. 1.5 cm cystic structure probably representing duration of ovarian cyst rather than at least small abscess. Incidental 2 cm benign lipid rich left adrenal adenoma. Possible underlying small fibroid changes throughout the uterus or adenomyosis. Laboratory data showed WBC 16.2, hemoglobin 14.8 and platelets 243 BUN 39 creatinine 0.73, sodium 140 potassium 4.3 chloride 104 and lactic acid 0.6 AST 16 ALT 9 alk phos 65 total protein 7.1 amylase 54 and lipase 120 and coronavirus PCR not detected and urine hCG not detected. 01/09/2021 Patient is seen in follow-up with no acute overnight issues. Patient does have some mild lower right quadrant tenderness although states feels much improved and is tolerating diet with no reports of nausea or vomiting. Patient has been followed by surgery and will follow-up closely with Dr. Sands in the outpatient setting as scheduled. Patient will be continued on oral antibiotics in the form of Flagyl 500 mg 3 times a day and Levaquin 500 milligrams daily for the next one week to complete the course. Patient also given resources for strict diverticulitis diet guidelines and instructed to continue with full liquids for now over the next few days and slowly advanced to low fiber and discussed in detail with surgery at next week's appointment. Patient was also seen by Dr. Polo gynecology and will follow-up outpatient in 2 weeks for repeat ultrasound and test results of sent out labs. Patient was having some mild vaginal discharge and states when she takes antibiotics she is very sensitive to getting yeast infections and will give Diflucan. Currently no reports of chest pain, shortness of breath, or palpitations. Patient is afebrile. No reports of nausea or vomiting and patient is tolerating diet. Patient will be discharged home today. On exam vital signs are stable. Cardio S1, S2 are muffled. Respiratory system shows diminished breath sounds at the bases with no wheezing or rhonchi noted. Abdomen is soft and nontender. Nervous system shows no focal deficits. Please refer to medication reconciliation sheet for a list of medications. Patient Condition at Discharge: Stable Plan - Discharge Summary Discharge Rx Participant: No New Discharge Prescriptions: New Docusate [Colace] 100 mg PO BID 30 Days #60 cap Acetaminophen Tab [Tylenol] 650 mg PO Q4HR PRN tab PRN Reason: Fever And/ Or Pain Fluconazole [Diflucan] 100 mg PO DAILY 5 Days #5 tablet metroNIDAZOLE [Flagyl] 500 mg PO TID 7 Days #21 tab Levofloxacin [Levaquin] 500 mg PO DAILY 7 Days #7 tab traMADol HCl [Ultram] 50 mg PO Q6HR PRN 3 Days #12 tab PRN Reason: Pain Continue Magnesium Hydroxide [Milk of Magnesia] 2,400 mg PO ONCE PRN PRN Reason: Constipation SUMAtriptan succinate [Imitrex] 50 mg PO DAILY PRN PRN Reason: Migraine Headache ALPRAZolam [Xanax] 0.5 mg PO DAILY PRN PRN Reason: Anxiety Discharge Medication List ALPRAZolam [Xanax] 0.5 mg PO DAILY PRN 01/07/21 [History] Magnesium Hydroxide [Milk of Magnesia] 2,400 mg PO ONCE PRN 01/07/21 [History] SUMAtriptan succinate [Imitrex] 50 mg PO DAILY PRN 01/07/21 [History] Acetaminophen Tab [Tylenol] 650 mg PO Q4HR PRN tab 01/09/21 [Rx] Docusate [Colace] 100 mg PO BID 30 Days #60 cap 01/09/21 [Rx] Fluconazole [Diflucan] 100 mg PO DAILY 5 Days #5 tablet 01/09/21 [Rx] Levofloxacin [Levaquin] 500 mg PO DAILY 7 Days #7 tab 01/09/21 [Rx] metroNIDAZOLE [Flagyl] 500 mg PO TID 7 Days #21 tab 01/09/21 [Rx] traMADol HCl [Ultram] 50 mg PO Q6HR PRN 3 Days #12 tab 01/09/21 [Rx] Follow up Appointment(s)/Referral(s): Livan Dyer III, MD [Primary Care Provider] - 1-2 days Shania Hernandez MD [STAFF PHYSICIAN] - 01/22/21 (01-22-2021 @4:45PM) Shania Polo MD [STAFF PHYSICIAN] - 2 Weeks (01-30-2021 @ 2PM) Activity/Diet/Wound Care/Special Instructions: Diet: avoid eating seeds or nuts Low fiber diet Activity Limited until follow-up Follow-up with primary care provider upon discharge Follow-up surgery outpatient Follow-up with [employer] Dr. Polo in 2 weeks for test results, repeat ultrasound, follow-up as discussed with Dr. Polo Continue with antibiotics until finished continue stool softeners Use Ultram as needed and/or Tylenol for pain Follow diet guidelines pt instructed to call or return to ER for worsening problems or concerns. Discharge Disposition: HOME SELF-CARE
== END 2021-01-09 12:24 | disposition home or self-care (01) | DRG 392 ==
LOC: EC 08:36 → 5NMEDONC 10:41 → 6PED 01-08 14:36
PROVIDERS: ADMIT Hospitalist; ATTEND Hospitalist
DX: K57.20 Diverticulitis of large intestine with perforation and abscess without bleeding (principal); D25.9 Leiomyoma of uterus, unspecified; D35.02 Benign neoplasm of left adrenal gland; N83.201 Unspecified ovarian cyst, right side; K59.00 Constipation, unspecified; K52.9 Noninfective gastroenteritis and colitis, unspecified; R11.0 Nausea; F17.210 Nicotine dependence, cigarettes, uncomplicated; F41.9 Anxiety disorder, unspecified; Z90.49 Acquired absence of other specified parts of digestive tract; Z20.822 Contact with and (suspected) exposure to COVID-19
CPT/HCPCS: 74177; 76830; 80048; 80053; 81025; 81503; 82150; 83605; 83690; 85025; 85610; 85730; 87040; 87635; 93975; 96361; 96374; 99285

== ENCOUNTER 2021-02-25 07:28 | Day surgery (SDC) | payer BC ==
[2021-02-21 10:46] VITALS: BMI 28.9
--- NOTE | 2021-02-25 05:36 | P.GSHP ---
History of Present Illness H&P Date: 02/25/21 CHIEF COMPLAINT: Diverticulitis HISTORY OF PRESENT ILLNESS: The patient is a 45-year-old female who presents for diverticulitis. Lower endoscopy was offered for further evaluation and management. PAST MEDICAL HISTORY: Please see list. PAST SURGICAL HISTORY: Please see list. MEDICATIONS: Please see list. ALLERGIES: Please see list. SOCIAL HISTORY: No illicit drug use FAMILY HISTORY: No reports of Crohn disease or ulcerative colitis. REVIEW OF ORGAN SYSTEMS: CONSTITUTIONAL: No reports of fevers or chills. PHYSICAL EXAM: VITAL SIGNS: Stable GENERAL: Well-developed pleasant in no acute distress. HEENT: No scleral icterus. Extraocular movements grossly intact. Moist buccal mucosa. NECK: Supple without lymphadenopathy. CHEST: Unlabored respirations. Equal bilateral excursions. CARDIOVASCULAR: Regular rate and rhythm. Distal 2+ pulses. ABDOMEN: Soft, nontender, nondistended. MUSCULOSKELETAL: No clubbing, cyanosis, or edema. ASSESSMENT: 1. Diverticulitis. PLAN: 1. Recommend proceeding with a lower endoscopy Past Medical History Past Medical History: No Reported History Additional Past Medical History / Comment(s): diverticulitis and perforation. History of Any Multi-Drug Resistant Organisms: None Reported Past Surgical History: Cholecystectomy, Uterine Ablation Past Anesthesia/Blood Transfusion Reactions: No Reported Reaction Smoking Status: Current every day smoker - Past Family History Mother Family Medical History: Cancer Additional Family Medical History / Comment(s): Breast cancer Father Family Medical History: Diabetes Mellitus, Hyperlipidemia, Hypertension Additional Family Medical History / Comment(s): AAA Medications and Allergies Home Medications Medication Instructions Recorded Confirmed Type ALPRAZolam [Xanax] 0.5 mg PO DAILY PRN 01/07/21 02/21/21 History SUMAtriptan succinate [Imitrex] 50 mg PO DAILY PRN 01/07/21 02/21/21 History Acetaminophen Tab [Tylenol] 650 mg PO Q4HR PRN tab 01/09/21 02/21/21 Rx Ibuprofen 200 mg PO Q8H PRN 02/21/21 02/21/21 History Allergies Allergy/AdvReac Type Severity Reaction Status Date / Time levofloxacin [From Levaquin] Allergy Rash/Hives Verified 02/21/21 10:33 metronidazole [From Flagyl] Allergy Rash/Hives Verified 02/21/21 10:32
[2021-02-25] MEDS: LACTATED RINGERS 1,000 ML IV SCH ×2 (07:52→08:00)
[2021-02-25 07:57] VITALS: TEMP 98
[2021-02-25] MEDS ORDERED: PROPOFOL 10 MG/ML 20 ML VIAL IV ONE (08:19)
[2021-02-25] MEDS ORDERED: LIDOCAINE 1% INJ 10MG/ML (20 ML MDV) ONE (08:19)
[2021-02-25 08:40] VITALS: RESP 16
--- NOTE | 2021-02-25 08:47 | P.PCN ---
Date of Procedure: 02/25/21 Description of Procedure: PREOPERATIVE DIAGNOSIS: Sigmoid diverticulitis POSTOPERATIVE DIAGNOSIS: Pandiverticulosis Severe sigmoid diverticulosis Rectal colon polyp OPERATION: Colonoscopy to the ileocecal valve and appendiceal orifice, cecum Colonoscopy with cold forceps biopsy SURGEON: Shania Hernandez MD. ANESTHESIA: MAC. INDICATIONS: The patient is an 45-year-old male who presents with history of diverticulitis. Benefits and risks were described and informed consent was obtained. DESCRIPTION OF PROCEDURE: The patient had undergone Sutab prep. The patient had been brought into the operating room and laid in the left lateral decubitus position. After adequate intravenous sedation, the rectum was examined with 2% lidocaine jelly. The prostate was unremarkable. External hemorrhoids were encountered. The rectal tone was within normal limits. No lesions were palpated in the rectal vault. An Olympus colonoscope was advanced until the cecum, ileocecal valve and appendiceal orifice were clearly viewed. The prep was excellent. Severe pandiverticulosis including the cecum and sigmoid diverticulosis was encountered. Colonic polyps were found and removed. No evidence of focal colitis was found. Retroflexion of the scope demonstrated grade 3 internal hemorrhoids without active bleeding or inflammation. The colon was desufflated. The patient had tolerated the procedure well. Withdrawal time was over 6 minutes. FINDINGS: Aronchick preparation quality scale 1 (1-5) Internal hemorrhoids, grade 3. External hemorrhoids, grade 3. No arteriovenous malformations. Sigmoid diverticulosis with pandiverticulosis to the cecum. Removal of 1 polyp: - Cold forceps biopsy at 10 cm from the anal verge, 4 mm polyp, rectum No focal colitis. RECOMMENDATIONS: Repeat colonoscopy in 5 years, 2025 Plan - Discharge Summary Discharge Rx Participant: No New Discharge Prescriptions: Continue SUMAtriptan succinate [Imitrex] 50 mg PO DAILY PRN PRN Reason: Migraine Headache Acetaminophen Tab [Tylenol] 650 mg PO Q4HR PRN tab PRN Reason: Fever And/ Or Pain ALPRAZolam [Xanax] 0.5 mg PO DAILY PRN PRN Reason: Anxiety Ibuprofen 200 mg PO Q8H PRN PRN Reason: Pain Discharge Medication List ALPRAZolam [Xanax] 0.5 mg PO DAILY PRN 01/07/21 [History] SUMAtriptan succinate [Imitrex] 50 mg PO DAILY PRN 01/07/21 [History] Acetaminophen Tab [Tylenol] 650 mg PO Q4HR PRN tab 01/09/21 [Rx] Ibuprofen 200 mg PO Q8H PRN 02/21/21 [History] Follow up Appointment(s)/Referral(s): Shania Hernandez MD [STAFF PHYSICIAN] - 03/12/21 Patient Instructions/Handouts: Colonoscopy (DC), Colorectal Polyps (IP), Diverticulitis (DC), Diverticulitis Diet (DC) Activity/Diet/Wound Care/Special Instructions: Repeat colonoscopy 5 years, 2025 Discharge Disposition: HOME SELF-CARE
[2021-02-25 09:00] VITALS: BP 127/70; PULSE 75
== END 2021-02-25 09:12 | disposition home or self-care (01) ==
LOC: ORWHC2ENDO 07:28
PROVIDERS: ATTEND Surgery Plastic and Reconstructive Surgery
DX: K57.32 Diverticulitis of large intestine without perforation or abscess without bleeding (principal); K63.5 Polyp of colon; F17.200 Nicotine dependence, unspecified, uncomplicated; G43.909 Migraine, unspecified, not intractable, without status migrainosus
CPT/HCPCS: 45380; 81025; 88305; 84703; J2001; J2704

== ENCOUNTER 2021-03-29 13:59 | Day surgery (SDC) | payer BC ==
[2021-03-25 18:09] VITALS: BMI 28.5
--- NOTE | 2021-03-29 12:02 | P.GSHP ---
History of Present Illness H&P Date: 03/29/21 CHIEF COMPLAINT: Right lower quadrant abdominal pain HISTORY OF PRESENT ILLNESS: The patient is a previously healthy 45-year-old female who presents with right lower quadrant abdominal pain that is crampy dull ache in nature. She states the intensity of the pain is moderate. CT abdomen and pelvis consistent with chronic appendicitis. PAST MEDICAL HISTORY: See list and reviewed PAST SURGICAL HISTORY: See list and reviewed CURRENT MEDICATIONS: See list and reviewed ALLERGIES: See list and reviewed SOCIAL HISTORY: See list and reviewed FAMILY HISTORY: See list and reviewed REVIEW OF ORGAN SYSTEMS: CONSTITUTIONAL: Present fever, no chills. Denies recent weight loss. HEENT: Denies any trouble with vision, hearing or nosebleeds. No difficulty swallowing. LYMPHATIC: The patient denies any lumps and bumps around the neck. ENDOCRINE: Denies any thyroid disorders. Denies any blood sugar glucose intolerance. RESPIRATORY: Denies shortness of breath including chronic cough. CARDIOVASCULAR: Denies history of chest pain with exertion. GASTROINTESTINAL: Denies regurgitation of bile. No blood in stools. GENITOURINARY: Denies any blood in urine or increased urinary frequency. MUSCULOSKELETAL: Denies current joint arthritis. NEUROLOGIC: Denies any numbness or tingling along the distal extremities. No seizure disorders or headaches. PSYCHIATRIC: Denies any depression or suicidal ideation. HEMATOLOGIC: Denies any abnormal bleeding or bruising. PHYSICAL EXAMINATION: GENERAL: A 10-year-old female in no acute distress. Pleasant. HEENT: No sclera icterus. Extraocular movements grossly intact. Moist buccal mucosa. Head is atraumatic, normocephalic. Hears conversational speech. No nasal drainage. NECK: Supple without lymphadenopathy. No JV distention. CHEST: Non-labored respirations and equal bilateral excursions. CARDIOVASCULAR: Regular rate and rhythm. Palpable 2+ radial pulses. ABDOMEN: Soft, tender at the right lower quadrant. MUSCULOSKELETAL: No clubbing, cyanosis or edema. NEUROLOGIC: No focal or lateralizing signs. PSYCH: Appropriate affect. Alert and oriented to person, place and time. SKIN: Well perfused. Good skin turgor. ASSESSMENT: 1. Right lower quadrant pain. 2. Chronic appendicitis PLAN: 1. I have discussed benefits and risks of robotic appendectomy. 2. Bilateral SCDs. Past Medical History Past Medical History: No Reported History Additional Past Medical History / Comment(s): diverticulitis and perforation. Migraines History of Any Multi-Drug Resistant Organisms: None Reported Past Surgical History: Cholecystectomy, Uterine Ablation Additional Past Surgical History / Comment(s): Colonoscopy Past Anesthesia/Blood Transfusion Reactions: No Reported Reaction Smoking Status: Current every day smoker - Past Family History Mother Family Medical History: Cancer Additional Family Medical History / Comment(s): Breast cancer Father Family Medical History: Cancer, Diabetes Mellitus, Hyperlipidemia, Hypertension Additional Family Medical History / Comment(s): AAA; prostate cancer Medications and Allergies Home Medications Medication Instructions Recorded Confirmed Type ALPRAZolam [Xanax] 0.5 mg PO DAILY PRN 01/07/21 03/25/21 History SUMAtriptan succinate [Imitrex] 50 mg PO DAILY PRN 01/07/21 03/25/21 History Acetaminophen Tab [Tylenol] 650 mg PO Q4HR PRN tab 01/09/21 03/25/21 Rx Naproxen Sodium [Aleve] 440 mg PO BID PRN 03/25/21 03/25/21 History Allergies Allergy/AdvReac Type Severity Reaction Status Date / Time levofloxacin [From Levaquin] Allergy Rash/Hives Verified 03/25/21 17:48 metronidazole [From Flagyl] Allergy Rash/Hives Verified 03/25/21 17:48
[~2021-03-29 13:59] MED LIST: ACETAMINOPHEN TAB 500 MG TAB PO PRN; DEXAMETHASONE SOD PHOSPHATE 4 MG/ML 1 ML VIAL IV ONE; GABAPENTIN 300 MG CAP PO PRN; HEPARIN SODIUM,PORCINE/PF 5,000 UNIT/0.5 ML SYRINGE SQ PRN; HYDROmorphone 0.5 MG/0.5 ML SYRINGE IVP PRN; LACTATED RINGERS 1,000 ML IV SCH; LIDOCAINE 1% (10MG/ML) FOR IV START INTRADERMA PRN; MELOXICAM 7.5 MG TAB PO PRN; MIDAZOLAM 2 MG/2 ML VIAL IV PRN; ONDANSETRON 4 MG/2 ML VIAL IVP ONE; SCOPOLAMINE 1.5MG/72HR PATCH TRANSDERM PRN; metroNIDAZOLE-NS PMX 500 MG in SALINE 1 100ML.BAG IVPB PRN
[2021-03-29 14:19] VITALS: TEMP 97.8
[2021-03-29 14:41] LABS: Basophils # (A) 0.1 k/uL (0-0.2); Basophils % (A) 1 %; Eosinophils # (A) 0.4 k/uL (0-0.7); Eosinophils % (A) 3 %; HCT 43.2 % (34.0-46.0); HGB 15.2 gm/dL (11.4-16.0); Hyperchromasia Slight; Lymphocytes # (A) 2.5 k/uL (1.0-4.8); Lymphocytes % (A) 23 %; MCH 32.1 pg (25.0-35.0); MCHC 35.1 g/dL (31.0-37.0); MCV 91.3 fL (80.0-100.0); Mean Platelet Volume 6.9; Monocytes # (A) 0.4 k/uL (0-1.0); Monocytes % (A) 3 %; Neutrophils # (A) 7.3 k/uL (1.3-7.7); Neutrophils % (A) 68 %; Platelet Count 245 k/uL (150-450); RBC 4.72 m/uL (3.80-5.40); WBC 10.7 k/uL (3.8-10.6)
[2021-03-29] MEDS ORDERED: HYDROmorphone (PF) 1 MG/ML ONE (17:12)
[2021-03-29] MEDS ORDERED: KETOROLAC 15 MG/ML 1 ML VIAL ONE (17:12)
[2021-03-29] MEDS ORDERED: LIDOCAINE 1% INJ 10MG/ML (20 ML MDV) ONE (17:12)
[2021-03-29] MEDS ORDERED: GLYCOPYRROLATE 0.2 MG/ML 2 ML VIAL ONE (17:12)
[2021-03-29] MEDS ORDERED: NEOSTIGMINE 1 MG/ML 10 ML VIAL ONE (17:12)
[2021-03-29] MEDS ORDERED: ROCURONIUM 10 MG/ML (5 ML VIAL) IV ONE (17:12)
[2021-03-29] MEDS ORDERED: SUCCINYLCHOLINE CHLORIDE 100 MG/5 ML SYR IV ONE (17:12)
[2021-03-29] MEDS ORDERED: fentaNYL (PF) 50 MCG/ML 2 ML AMP ONE (17:12)
[2021-03-29] MEDS ORDERED: PROPOFOL 10 MG/ML 20 ML VIAL IV ONE (17:12)
[2021-03-29] MEDS ORDERED: MIDAZOLAM 2 MG/2 ML VIAL ONE (17:12)
[2021-03-29] MEDS ORDERED: LIDOCAINE 2%-EPI 1:100,000 20 ML VIAL SQ ONE (17:55)
[2021-03-29] MEDS ORDERED: LACTATED RINGERS 1,000 ML IV ONE (18:07)
--- NOTE | 2021-03-29 18:15 | P.OP ---
Date of Procedure: 03/29/21 Description of Procedure: SURGEON: SHANIA HERNANDEZ MD Preoperative Diagnosis: 1. Chronic appendicitis 2. Right lower quadrant abdominal pain 3. Migraines 4. Generalized anxiety disorder Postoperative Diagnosis: 1. Chronic appendicitis 2. Right lower quadrant abdominal pain 3. Migraines 4. Generalized anxiety disorder Procedure(s) Performed: 1. Robotic-assisted daVinci Xi laparoscopic appendectomy Anesthesia: GETA, local Estimated Blood Loss (ml): 5 Pathology: other (appendix) COMPLICATIONS: None Operative Findings: 1. Left ovary unremarkable 2. Right ovary with resolved large ovarian cyst 3. Terminal ileum unremarkable 4. Cecum unremarkable INDICATIONS: The patient is a 45-year-old female who presents with chronic appendicitis. Benefits and risks, including infection, open surgery, and bleeding for additional surgery was discussed at length. Informed consent was o btained. All questions of the patient and family were answered. DESCRIPTION: The patient was transferred to the operating room and placed in supine position. The patient had previously voided. The abdomen was then prepped and draped in standard sterile fashion as Ioban was placed along the abdomen to minimize any contamination of skin floor. After a timeout protocol was performed, attention was then brought to the left upper quadrant whereby a 0 degree 5 mm laparoscopic trocar entry was performed. The abdominal cavity was entered and insufflated to 12 mmHg pressure, which was tolerated well. Diagnostic laparoscopy demonstrated no injury to bowel, viscera or mesentery. Next a robotic 8-mm trocar was placed along the left lower quadrant, 10-cm lateral to the midline. A 12 mm port was placed along the left upper quadrant and another 8-mm port left lateral abdominal wall. Ports were placed 8 cm apart from each other including 15-20 cm away from the target anatomy of the right pel vis. The patient was then placed in Trendelenburg position, at least 10 down and right side up at least 6. The robotic da Chris XI system was primed and docked from the left side of the patient. Using atraumatic graspers and vessel sealer, the robotic system was docked and primed as described. Instruments were interchanged by the pharmacy technician assistant including graspers, robotic stapler and vessel sealer. Next, attention was brought to identify the cecum. A systematic view within the abdominal cavity was started with the small bowel which was unremarkable. The base of the cecum was unremarkable. No inguinal hernias were identified. The left ovary was unremarkable. No large ovarian cyst along the right side was identified. The mesoappendix was mobilized to the base of the appendix. Blue 45 mm robotic staple loads were fired along the base of the appendix. The staple line was hemostatic. Hemostasis was checked prior to undocking the robot. The robot was undocked. I re-scrubbed into the case. The specimen was removed from the abdominal cavity with an Endo Catch bag through the 12 mm trocar at the left upper quadrant. All instruments and pneumoperitoneum were evacuated from the abdominal cavity. Local anesthetic was infiltrated to all wounds for postop analgesia. All incisions were also cleansed with diluted hydrogen peroxide. The incisions were closed with 4-0 Monocryl. Exofin glue was applied to the rest of the skin incisions. The patient had tolerated the procedure well. The patient was extubated successfully. The patient was transferred to the postanesthesia care unit in stable condition. Plan - Discharge Summary Discharge Rx Participant: No New Discharge Prescriptions: New Simethicone [Gas-X] 125 mg PO AC-TID PRN #20 cap PRN Reason: Pain Ibuprofen [Motrin] 600 mg PO Q8HR PRN #30 tab PRN Reason: Pain Acetaminophen Tab [Tylenol Tab] 1,000 mg PO Q6HR PRN #30 tablet PRN Reason: Pain Continue SUMAtriptan succinate [Imitrex] 50 mg PO DAILY PRN PRN Reason: Migraine Headache Acetaminophen Tab [Tylenol] 650 mg PO Q4HR PRN tab PRN Reason: Fever And/ Or Pain Naproxen Sodium [Aleve] 440 mg PO BID PRN PRN Reason: Pain ALPRAZolam [Xanax] 0.5 mg PO DAILY PRN PRN Reason: Anxiety Discharge Medication List ALPRAZolam [Xanax] 0.5 mg PO DAILY PRN 01/07/21 [History] SUMAtriptan succinate [Imitrex] 50 mg PO DAILY PRN 01/07/21 [History] Acetaminophen Tab [Tylenol] 650 mg PO Q4HR PRN tab 01/09/21 [Rx] Naproxen Sodium [Aleve] 440 mg PO BID PRN 03/25/21 [History] Acetaminophen Tab [Tylenol Tab] 1,000 mg PO Q6HR PRN #30 tablet 03/29/21 [Rx] Ibuprofen [Motrin] 600 mg PO Q8HR PRN #30 tab 03/29/21 [Rx] Simethicone [Gas-X] 125 mg PO AC-TID PRN #20 cap 03/29/21 [Rx] Follow up Appointment(s)/Referral(s): Shania Hernandez MD [STAFF PHYSICIAN] - 04/04/21 Patient Instructions/Handouts: Laparoscopic Appendectomy (DC), *Surgery [facility] - Managing Your Pain After Surgery Without Opioids Activity/Diet/Wound Care/Special Instructions: Using antibacterial soap. No lifting over 10 pounds 2 weeks, April 12November shower. No bathtub soaks for 2 weeks, April 12 Use ice along incisions for today to prevent swelling. Take tylenol, aleve/ibuprofen, simethicone scheduled for 3 days for best pain relief Discharge Disposition: HOME SELF-CARE
[2021-03-29 18:58] VITALS: RESP 18
[2021-03-29 19:16] VITALS: BP 110/67; PULSE 78
== END 2021-03-29 19:36 | disposition home or self-care (01) ==
LOC: OR 13:59
PROVIDERS: ATTEND Surgery Plastic and Reconstructive Surgery
DX: K36 Other appendicitis (principal); F41.1 Generalized anxiety disorder; J45.909 Unspecified asthma, uncomplicated; F17.210 Nicotine dependence, cigarettes, uncomplicated; F41.9 Anxiety disorder, unspecified; Z79.890 Hormone replacement therapy; Z79.899 Other long term (current) drug therapy
CPT/HCPCS: 44970; S2900; 81025; 85025; 88304

== ENCOUNTER → 2022-12-04 | Outpatient (CLI) | payer BC ==
--- NOTE | 2022-12-05 09:04 | MM ---
Reason for Exam: Screening (asymptomatic). Last screening mammogram was performed 12 month(s) ago. Patient History: Menarche at age 10. First Full-Term at age 17. Mother had breast cancer, age 42. Last menstrual period: 11/10/2022 Risk Values: Patricia 5 year model risk: 1.7%. NCI Lifetime model risk: 16.3%. Prior Study Comparison: 05/19/2014 Bilateral Diagnostic Mammogram, [facility]. 11/21/2020 Bilateral Screening Mammogram, [facility]. 11/29/2021 Bilateral MG 3D screening mammo w/cad, [facility]. Tissue Density: There are scattered fibroglandular densities. Findings: Analyzed By CAD. There is no suspicious group of microcalcifications or new suspicious mass in either breast. Overall Assessment: Negative, BI-RAD 1 Management: Screening Mammogram of both breasts in 1 year. . Patient should continue monthly self-breast exams. A clinical breast exam by your physician is recommended on an annual basis. This exam should not preclude additional follow-up of suspicious palpable abnormalities. Note on Patricia scores and lifetime risk: 1. A Patricia score greater than 3% is considered moderate risk. If this is the case, consider specialist referral to assess eligibility for a risk reducing agent. 2. If overall lifetime risk for the development of breast cancer is 20% or higher, the patient may qualify for future screening with alternating mammogram and breast MRI. Electronically signed and approved by: Ritesh Reno M.D.
== END | disposition home or self-care (01) ==
LOC: RADMAMWWP 07:25
PROVIDERS: ATTEND Obstetrics & Gynecology
DX: Z12.31 Encounter for screening mammogram for malignant neoplasm of breast (principal); Z80.3 Family history of malignant neoplasm of breast
CPT/HCPCS: 77063; 77067

== ENCOUNTER → 2023-12-22 | Outpatient (CLI) | payer BC ==
--- NOTE | 2023-12-23 13:05 | MM ---
Reason for Exam: Screening (asymptomatic). Last mammogram was performed 1 year(s) and 1 month(s) ago. Patient History: Menarche at age 10. First Full-Term at age 17. Mother had breast cancer, age 42. Last menstrual period: 12/17/2023 Risk Values: Patricia 5 year model risk: 1.8%. NCI Lifetime model risk: 16.0%. Prior Study Comparison: 11/21/2020 Bilateral Screening Mammogram, [facility]. 11/29/2021 Bilateral MG 3D screening mammo w/cad, [facility]. 12/04/2022 Bilateral MG 3D screening mammo w/cad, [facility]. Tissue Density: There are scattered areas of fibroglandular density. Findings: Analyzed By CAD. There is no suspicious group of microcalcifications or new suspicious mass in either breast. Overall Assessment: Negative, BI-RAD 1 Management: Screening Mammogram of both breasts in 1 year. . Patient should continue monthly self-breast exams. A clinical breast exam by your physician is recommended on an annual basis. This exam should not preclude additional follow-up of suspicious palpable abnormalities. Note on Patricia scores and lifetime risk: 1. A Patricia score greater than 3% is considered moderate risk. If this is the case, consider specialist referral to assess eligibility for a risk reducing agent. 2. If overall lifetime risk for the development of breast cancer is 20% or higher, the patient may qualify for future screening with alternating mammogram and breast MRI. Electronically signed and approved by: Chico Chávez M.D. Radiologis
== END | disposition home or self-care (01) ==
LOC: RADMAMWWP 06:57
PROVIDERS: ATTEND Obstetrics & Gynecology
DX: Z12.31 Encounter for screening mammogram for malignant neoplasm of breast (principal); Z80.3 Family history of malignant neoplasm of breast
CPT/HCPCS: 77063; 77067

== ENCOUNTER 2024-09-03 13:10 | Emergency (ER) | payer BC ==
--- NOTE | 2024-09-03 13:39 | ED ---
Back Pain HPI - General Source: patient, RN notes reviewed Mode of arrival: ambulatory Limitations: no limitations <Kassie Dutta - Last Filed: 09/03/24 13:38> - General Source: patient, RN notes reviewed Mode of arrival: ambulatory Limitations: no limitations - History of Present Illness MD Complaint: back pain Onset/Timin -: month(s) Similar Symptoms Previously: No Severity scale (1-10): 5 Quality: aching Consistency: intermittent <Ronald Leary - Last Filed: 09/03/24 20:29> - General Stated Complaint: Arik flank pain Time Seen by Provider: 09/03/24 13:38 - History of Present Illness Initial Comments: Quick note: 48-year-old female presented the ER for evaluation of lower back pain. Patient has been following up with PCP, Dr. Dyer, and has outpatient CAT scan scheduled. She states over the past couple months she has been having waxing and waning bilateral flank pain. She does report her urine is dark. No fevers chills nausea or vomiting. (Kassie Dutta) This is a 48-year-old female presenting with right flank pain (5/10) x 2 months. Patient states pain is intermittent and "nagging" and aching. Endorses associated dark urine. States she was advised by her PCP to have a CT scan done but has been procrastinating. Denies other urinary symptoms or history of kidney stones. Denies fever, chills dizziness, chest pain, dyspnea, N/V/D, hematuria. (Ronald Leary) - Related Data Home Medications Medication Instructions Recorded Confirmed ALPRAZolam [Xanax] 0.5 mg PO DAILY PRN 01/07/21 03/29/21 SUMAtriptan succinate [Imitrex] 50 mg PO DAILY PRN 01/07/21 03/29/21 Naproxen Sodium [Aleve] 440 mg PO BID PRN 03/25/21 03/29/21 Previous Rx's Medication Instructions Recorded Acetaminophen Tab [Tylenol] 650 mg PO Q4HR PRN tab 01/09/21 Acetaminophen Tab [Tylenol Tab] 1,000 mg PO Q6HR PRN #30 tablet 03/29/21 Ibuprofen [Motrin] 600 mg PO Q8HR PRN #30 tab 03/29/21 Simethicone [Gas-X] 125 mg PO AC-TID PRN #20 cap 03/29/21 Amoxic-Pot Clav 875-125Mg 1 tab PO BID 1 Days #20 tab 09/03/24 [Augmentin 875-125] Allergies Allergy/AdvReac Type Severity Reaction Status Date / Time levofloxacin [From Levaquin] Allergy Rash/Hives Verified 09/03/24 13:40 metronidazole [From Flagyl] Allergy Rash/Hives Verified 09/03/24 13:40 Review of Systems ROS Other: All systems not noted in ROS Statement are negative. <Kassie Dutta - Last Filed: 09/03/24 13:38> ROS Other: All systems not noted in ROS Statement are negative. <Ronald Leary - Last Filed: 09/03/24 20:29> ROS Statement: Those systems with pertinent positive or pertinent negative responses have been documented in the HPI. Past Medical History Past Medical History: No Reported History Additional Past Medical History / Comment(s): diverticulitis and perforation. Migraines History of Any Multi-Drug Resistant Organisms: None Reported Past Surgical History: Cholecystectomy, Uterine Ablation Additional Past Surgical History / Comment(s): Colonoscopy Past Anesthesia/Blood Transfusion Reactions: No Reported Reaction Smoking Status: Current every day smoker - Past Family History Mother Family Medical History: Cancer Additional Family Medical History / Comment(s): Breast cancer Father Family Medical History: Cancer, Diabetes Mellitus, Hyperlipidemia, Hypertension Additional Family Medical History / Comment(s): AAA; prostate cancer <Kassie Dutta - Last Filed: 09/03/24 13:38> General Exam <Kassie Dutta - Last Filed: 09/03/24 13:38> General appearance: alert, in no apparent distress Head exam: Present: atraumatic, normocephalic, normal inspection Eye exam: Present: normal appearance, PERRL, EOMI. Absent: scleral icterus, conjunctival injection, periorbital swelling ENT exam: Present: normal exam, mucous membranes moist Neck exam: Present: normal inspection. Absent: tenderness, meningismus, lymphadenopathy Respiratory exam: Present: normal lung sounds bilaterally. Absent: respiratory distress, wheezes, rales, rhonchi, stridor Cardiovascular Exam: Present: regular rate, normal rhythm, normal heart sounds. Absent: systolic murmur, diastolic murmur, rubs, gallop, clicks GI/Abdominal exam: Present: soft, normal bowel sounds. Absent: distended, tenderness, guarding, rebound, rigid Extremities exam: Present: normal inspection, full ROM, normal capillary refill. Absent: tenderness, pedal edema, joint swelling, calf tenderness Back exam: Present: normal inspection, CVA tenderness (R), CVA tenderness (L) Neurological exam: Present: alert, oriented X3, CN II-XII intact Psychiatric exam: Present: normal affect, normal mood Skin exam: Present: warm, dry, intact, normal color. Absent: rash <Ronald Leary - Last Filed: 09/03/24 20:29> - General Exam Comments Initial Comments: Visual Physical Exam Vital signs reviewed General: Well-appearing, nontoxic, no acute distress. Head: Normocephalic, atraumatic Eyes: PERRLA, EOMI ENT: Airway patent Chest: Nonlabored breathing Skin: No visual rash, normal skin tone Neuro: Alert and oriented 3 Musculoskeletal: No gross abnormalities (Kassie Dutta) Course Vital Signs 09/03/24 09/03/24 13:36 16:30 Temperature 98.3 F Pulse Rate 76 76 Respiratory 18 18 Rate Blood Pressure 144/81 138/80 O2 Sat by Pulse 100 98 Oximetry Medical Decision Making <Kassie Dutta - Last Filed: 09/03/24 13:38> - Lab Data Result diagrams: 09/03/24 13:38 09/03/24 13:38 <Ronald Leary - Last Filed: 09/03/24 20:29> - Medical Decision Making I performed the quick note portion of this chart. Electronically signed by Kassie Dutta PA-C (Kassie Dutta) Was pt. sent in by a medical professional or institution ([facility], [employer], urgent care, hospital, or residential...) When possible be specific @ -No Did you speak to anyone other than the patient for history (EMS, parent, family, police, friend...)? What history was obtained from this source @ -No Did you review nursing and triage notes (agree or disagree)? Why? @ -I reviewed and agree with nursing and triage notes Were old charts reviewed (outside hosp., previous admission, EMS record, old EKG, old radiological studies, urgent care reports/EKG's, residential records)? Report findings @ -No old charts were reviewed Differential Diagnosis (chest pain, altered mental status, abdominal pain women, abdominal pain men, vaginal bleeding, weakness, fever, dyspnea, syncope, headache, dizziness, GI bleed, back pain, seizure, CVA, palpatations, mental health, musculoskeletal)? @ -Differential Abdominal Pain Women: Appendicitis, Cholecystitis, diverticulosis, ischemic bowel, pancreatitis, hepatitis, UTI, gastroenteritis, AAA, incarcerated hernia, bowel obstruction, constipation, inflammatory bowel, hepatitis, peptic ulcer disease, splenic infarction, perforated viscus, vulvitis, ovarian torsion, PID, kidney stone, placenta abruption, this is not meant to be an all-inclusive list EKG interpreted by me (3pts min.). @ -Not done X-rays interpreted by me (1pt min.). @ -None done CT interpreted by me (1pt min.). @ -Abdomen/pelvic CT shows anterior cecal diverticulitis without perforation and 4 cm right ovarian cyst. U/S interpreted by me (1pt. min.). @ -None done What testing was considered but not performed or refused? (CT, X-rays, U/S, labs)? Why? @ -None What meds were considered but not given or refused? Why? @ -None Did you discuss the management of the patient with other professionals (professionals i.e. , PA, [employer], lab, RT, psych nurse, social problems specialist, respiratory therapy aide, teacher, space officer, cyanide case hardener)? Give summary @ -No Was smoking cessation discussed for >3mins.? @ -No Was critical care preformed (if so, how long)? @ -No Were there social determinants of health that impacted care today? How? (Homelessness, low income, unemployed, alcoholism, drug addiction, transpor tation, low edu. Level, literacy, decrease access to med. care, nursing home, rehab)? @ -No Was there de-escalation of care discussed even if they declined (Discuss DNR or withdrawal of care, Hospice)? DNR status @ -No What co-morbidities impacted this encounter? (DM, HTN, Smoking, COPD, CAD, Cancer, CVA, ARF, Chemo, Hep., AIDS, mental health diagnosis, sleep apnea, morbid obesity)? @ -None Was patient admitted / discharged? Hospital course, mention meds given and route, prescriptions, significant lab abnormalities, going to OR and other pertinent info. @ -Lab work shows mild leukocytosis 12.9 with left shift other lab work and UA are unremarkable. Abdomen/pelvic CT shows anterior cecal diverticulitis without perforation and 4 cm right ovarian cyst. Augmentin sent to patient's pharmacy and advised ultrasound follow-up for cyst in 6 months. Discussed patient with Dr. Jackson. Undiagnosed new problem with uncertain prognosis? @ -No Drug Therapy requiring intensive monitoring for toxicity (Heparin, Nitro, Insulin, Cardizem)? @ -No Were any procedures done? @ -No Diagnosis/symptom? @ -Cecal diverticulitis, ovarian cyst Acute, or Chronic, or Acute on Chronic? @ -Acute Uncomplicated (without systemic symptoms) or Complicated (systemic symptoms)? @ -Complicated Side effects of treatment? @ -No Exacerbation, Progression, or Severe Exacerbation? @ -No Poses a threat to life or bodily function? How? (Chest pain, [place], [place], pneumonia, PE, COPD, DKA, ARF, appy, cholecystitis, CVA, Diverticulitis, Homicidal, Suicidal, threat to staff... and all critical care pts) @ -No (Ronald Leary) - Lab Data Lab Results 09/03/24 09/03/24 09/03/24 Range/Units 13:38 13:38 13:38 WBC 12.9 H (3.8-10.6) k/uL RBC 4.25 (3.80-5.40) m/uL Hgb 13.4 (11.4-16.0) gm/dL Hct 39.0 (34.0-46.0) % MCV 91.7 (80.0-100.0) fL MCH 31.5 (25.0-35.0) pg MCHC 34.4 (31.0-37.0) g/dL RDW 12.7 (11.5-15.5) % Plt Count 217 (150-450) k/uL MPV 7.0 Neutrophils % 82 % Lymphocytes % 12 % Monocytes % 3 % Eosinophils % 1 % Basophils % 0 % Neutrophils # 10.5 H (1.3-7.7) k/uL Lymphocytes # 1.6 (1.0-4.8) k/uL Monocytes # 0.4 (0-1.0) k/uL Eosinophils # 0.1 (0-0.7) k/uL Basophils # 0.0 (0-0.2) k/uL Sodium 141 (137-145) mmol/L Potassium 4.2 (3.5-5.1) mmol/L Chloride 106 (98-107) mmol/L Carbon Dioxide 25 (22-30) mmol/L Anion Gap 10 mmol/L BUN 10 (7-17) mg/dL Creatinine 0.74 (0.52-1.04) mg/dL Est GFR (CKD-EPI)AfAm >90 (>60 ml/min/1.73 sqM) Est GFR (CKD-EPI)NonAf >90 (>60 ml/min/1.73 sqM) Glucose 99 (74-99) mg/dL Plasma Lactic Acid Robbin 1.8 (0.7-2.0) mmol/L Calcium 10.2 (8.4-10.2) mg/dL Total Bilirubin 1.5 H (0.2-1.3) mg/dL AST 18 (14-36) U/L ALT 11 (4-34) U/L Alkaline Phosphatase 50 (38-126) U/L Total Protein 6.9 (6.3-8.2) g/dL Albumin 4.1 (3.5-5.0) g/dL Amylase 64 (30-110) U/L Lipase 123 (23-300) U/L Urine Color Urine Appearance (Clear) Urine pH (5.0-8.0) Ur Specific [place] (1.001-1.035) Urine Protein (Negative) Urine Glucose (UA) (Negative) Urine Ketones (Negative) Urine Blood (Negative) Urine Nitrite (Negative) Urine Bilirubin (Negative) Urine Urobilinogen (<2.0) mg/dL Ur Leukocyte Esterase (Negative) Urine RBC (0-5) /hpf Urine WBC (0-5) /hpf Ur Squamous Epith Cells (0-4) /hpf Urine Mucus (None) /hpf 09/03/24 Range/Units 15:17 WBC (3.8-10.6) k/uL RBC (3.80-5.40) m/uL Hgb (11.4-16.0) gm/dL Hct (34.0-46.0) % MCV (80.0-100.0) fL MCH (25.0-35.0) pg MCHC (31.0-37.0) g/dL RDW (11.5-15.5) % Plt Count (150-450) k/uL MPV Neutrophils % % Lymphocytes % % Monocytes % % Eosinophils % % Basophils % % Neutrophils # (1.3-7.7) k/uL Lymphocytes # (1.0-4.8) k/uL Monocytes # (0-1.0) k/uL Eosinophils # (0-0.7) k/uL Basophils # (0-0.2) k/uL Sodium (137-145) mmol/L Potassium (3.5-5.1) mmol/L Chloride (98-107) mmol/L Carbon Dioxide (22-30) mmol/L Anion Gap mmol/L BUN (7-17) mg/dL Creatinine (0.52-1.04) mg/dL Est GFR (CKD-EPI)AfAm (>60 ml/min/1.73 sqM) Est GFR (CKD-EPI)NonAf (>60 ml/min/1.73 sqM) Glucose (74-99) mg/dL Plasma Lactic Acid Robbin (0.7-2.0) mmol/L Calcium (8.4-10.2) mg/dL Total Bilirubin (0.2-1.3) mg/dL AST (14-36) U/L ALT (4-34) U/L Alkaline Phosphatase (38-126) U/L Total Protein (6.3-8.2) g/dL Albumin (3.5-5.0) g/dL Amylase (30-110) U/L Lipase (23-300) U/L Urine Color Yellow Urine Appearance Clear (Clear) Urine pH 5.5 (5.0-8.0) Ur Specific [place] 1.024 (1.001-1.035) Urine Protein Negative (Negative) Urine Glucose (UA) Negative (Negative) Urine Ketones Negative (Negative) Urine Blood Small H (Negative) Urine Nitrite Negative (Negative) Urine Bilirubin Negative (Negative) Urine Urobilinogen <2.0 (<2.0) mg/dL Ur Leukocyte Esterase Trace H (Negative) Urine RBC 6 H (0-5) /hpf Urine WBC 4 (0-5) /hpf Ur Squamous Epith Cells 5 H (0-4) /hpf Urine Mucus Occasional H (None) /hpf Disposition <Kassie Dutta - Last Filed: 09/03/24 13:38> Is patient prescribed a controlled substance at d/c from ED?: No Time of Disposition: 16:12 <Ronald Leary - Last Filed: 09/03/24 20:29> Clinical Impression: Cecal diverticulitis, Ovarian cyst Disposition: HOME SELF-CARE Condition: Good Instructions (If sedation given, give patient instructions): Ovarian Cyst (ED), Diverticulitis (ED) Prescriptions: Amoxic-Pot Clav 875-125Mg [Augmentin 875-125] 1 tab PO BID 1 Days #20 tab Referrals: Livan Dyer III, MD [Primary Care Provider] - 1-2 days
[2024-09-03 13:40] VITALS: PULSE 76; RESP 18; TEMP 98.3
[2024-09-03 15:02] LABS: Basophils % (A) 0 %; Eosinophils # (A) 0.1 k/uL (0-0.7); Eosinophils % (A) 1 %; HGB 13.4 gm/dL (11.4-16.0); Lymphocytes # (A) 1.6 k/uL (1.0-4.8); Lymphocytes % (A) 12 %; MCH 31.5 pg (25.0-35.0); MCHC 34.4 g/dL (31.0-37.0); MCV 91.7 fL (80.0-100.0); Monocytes # (A) 0.4 k/uL (0-1.0); Monocytes % (A) 3 %; Neutrophils # (A) 10.5 k/uL (1.3-7.7); Neutrophils % (A) 82 %; Platelet Count 217 k/uL (150-450); RBC 4.25 m/uL (3.80-5.40); RDW 12.7 % (11.5-15.5); WBC 12.9 k/uL (3.8-10.6)
[2024-09-03 15:17] LABS: ALT 11 U/L (4-34); AST 18 U/L (14-36); African American GFR (CKD) >90 (>60 ml/min/1.73 sqM); Albumin 4.1 g/dL (3.5-5.0); Alkaline Phosphatase 50 U/L (38-126); Amylase 64 U/L (30-110); Anion Gap 10 mmol/L; Blood Urea Nitrogen 10 mg/dL (7-17); Calcium 10.2 mg/dL (8.4-10.2); Carbon Dioxide 25 mmol/L (22-30); Chloride 106 mmol/L (98-107); Glucose 99 mg/dL (74-99); Lipase 123 U/L (23-300); Non-African American GFR(CKD) >90 (>60 ml/min/1.73 sqM); Potassium 4.2 mmol/L (3.5-5.1); Sodium 141 mmol/L (137-145); Total Bilirubin 1.5 mg/dL (0.2-1.3); Total Protein 6.9 g/dL (6.3-8.2)
[2024-09-03 15:39] LABS: Appearance,Urine Clear (Clear); Bilirubin,Urine Negative (Negative); Blood,Urine Small (Negative); Color,Urine Yellow; Glucose,Urine (UA) Negative (Negative); Ketones,Urine Negative (Negative); Leukocyte Esterase,Urine Trace (Negative); Mucus,Urine Occasional /hpf; Nitrite,Urine Negative (Negative); PH, Urine 5.5 (5.0-8.0); Protein,Urine Negative (Negative); RBC,Urine 6 /hpf (0-5); Specific Gravity,Urine 1.024 (1.001-1.035); Squamous Epithelial Cell,Urine 5 /hpf (0-4); Urobilinogen,Urine <2.0 mg/dL (<2.0); WBC,Urine 4 /hpf (0-5)
--- NOTE | 2024-09-03 15:55 | CT ---
EXAMINATION TYPE: CT abdomen pelvis wo con DATE OF EXAM: 09/03/2024 3:38 PM COMPARISON: CT abdomen pelvis most recent from 12/30/2020 CLINICAL INDICATION: Female, 48 years old with history of mabel flank pain; bilateral flank pain TECHNIQUE: Axial CT abdomen pelvis wo con;Sagittal and coronal reformats were created on a separate workstation. Contrast used: mL of , (none if empty) Oral contrast used: without Oral Contrast (none if empty) CT DLP: 504.8 mGycm, Automated exposure control for dose reduction was used. FINDINGS: LOWER CHEST: Unremarkable ABDOMEN LIVER: Unremarkable GALLBLADDER AND BILE DUCTS: The gallbladder is surgically absent. PANCREAS: Unremarkable. SPLEEN: Mildly enlarged projected ADRENAL GLANDS: Unremarkable. KIDNEYS AND URETERS: No evidence of hydronephrosis or renal calculus. The ureters are unremarkable. PELVIS BLADDER: No evidence for wall thickening or mass given limitations of exam. REPRODUCTIVE: Right ovarian cyst measuring up to 4.0 cm. ABDOMEN & PELVIS STOMACH AND BOWEL: No evidence of bowel obstruction. There appears to be postsurgical changes with pr ior appendectomy. A anterior diverticulum off the cecum with stranding fat stranding changes are pres ent. Scattered other diverticula were submitted descending colon and sigmoid colon. PERITONEUM/RETROPERITONEUM: No evidence of pneumoperitoneum or free fluid. VASCULATURE: No evidence of aortic aneurysm. MUSCULOSKELETAL: No acute osseous abnormalities, partial butterfly vertebrae of L4. LYMPH NODES: No gross evidence for lymphadenopathy. SOFT TISSUE/ABDOMINAL WALL: Unremarkable IMPRESSION: 1. Cecal anterior diverticulitis, no evidence for perforation or organizing fluid collection. 2. The appendix appears surgically absent. 3. Colonic diverticulosis of the sigmoid and descending colon without evidence for diverticulitis in the left side. No obstructive uropathy or renal calculus visualized. 4. Right ovarian cyst measuring up to 4.0 cm. Consider follow-up ultrasound for surveillance of this lesion in 6 months. [facility], , 09/03/2024 3:53 PM
[2024-09-03 16:34] VITALS: BP 138/80
== END 2024-09-03 16:34 | disposition home or self-care (01) ==
LOC: EC 13:10
DX: K57.32 Diverticulitis of large intestine without perforation or abscess without bleeding (principal); N83.201 Unspecified ovarian cyst, right side; F17.200 Nicotine dependence, unspecified, uncomplicated; Z88.1 Allergy status to other antibiotic agents
CPT/HCPCS: 36415; 74176; 80053; 81001; 82150; 83605; 83690; 85025; 99284